=== PATIENT | male | born 1945 | race Caucasian/White ===

== ENCOUNTER 2017-10-11 11:55 | Emergency (ER) | payer MEDICARE, OTHER, SELFPAY ==
[2017-10-11 11:47] VITALS: BP 109/64; PULSE 80; RESP 18; TEMP 36.2; O2SAT 100
--- NOTE | 2017-10-11 11:55 | DI.RAD.S_ITS ---
PROCEDURE: XR CHEST 1V INDICATIONS: fall TECHNIQUE: One view of the chest was acquired. COMPARISON: [facility], CR, ABDOMEN ACUTE SERIES, 10/10/2015, 3:51. FINDINGS: Surgical changes and devices: None. Lungs and pleura: No pleural effusions or pneumothorax. Chronic interstitial changes are present with increased pulmonary vascularity. There is slight increased opacity in the left base/lingular. Mediastinum: Mediastinal contours appear normal. Heart size is normal. Bones and chest wall: No suspicious bony lesions. Overlying soft tissues appear unremarkable. IMPRESSION: Increased vascularity suggestive of edema with slight increased left basilar/lingular opacity. The latter could be manufacturer representative of edema vs developing air space disease. Dictated by: Stephany Rocha M.D. on 10/11/2017 at 12:19 Approved by: Stephany Rocha M.D. on 10/11/2017 at 12:22
--- NOTE | 2017-10-11 11:56 | DI.CT.S_ITS ---
PROCEDURE: CT HEAD/BRAIN WO CON INDICATIONS: fall head first 15 feet. Right sided forehead lac TECHNIQUE: Noncontrast 4.5 mm thick angled axial sections acquired from the foramen magnum to the vertex, with coronal and sagittal reformats. For radiation dose reduction, the following was used: automated exposure control, adjustment of mA and/or kV according to patient size. COMPARISON: None. FINDINGS: Image quality: Excellent. CSF spaces: Basal cisterns are patent. No extra-axial fluid collections. The ventricles are symmetric in size and shape. Brain: No intracranial bleeds or masses. There is cerebral volume loss for age, with resultant ventricular and sulcal prominence. There are periventricular and deep white matter chronic small vessel ischemic changes. There is intracranial internal carotid artery atherosclerosis. Skull and face: There is comminuted, mildly displaced right lateral orbital wall fracture. Possible nondisplaced right orbital fracture. Nondisplaced right zygomatic arch fracture is present. There are comminuted fractures of the anterior and posterior wall of the right maxillary sinus. Nondisplaced right nasal bone fracture is noted. There is right soft tissue laceration and contusion with subcutaneous emphysema. Sinuses: There is an air-fluid level in the right maxillary sinus, likely secondary to hematoma. Mastoids are clear. IMPRESSION: 1. No acute intracranial abnormalities. No intracranial bleed. 2. Cerebral volume loss and chronic microvascular ischemic changes. 3. Right orbital fractures. 4. Nondisplaced zygomatic arch fracture. 5. Comminuted fractures of the anterior and posterior right maxillary ricketts with hematoma within the maxillary sinus. 6. Right prefrontal soft tissue laceration/contusion. Dictated by: Jimmy Khan M.D. on 10/11/2017 at 12:22 Approved by: Jimmy Khan M.D. on 10/11/2017 at 12:32
--- NOTE | 2017-10-11 11:56 | DI.RAD.S_ITS ---
PROCEDURE: XR PELVIS 1-2V INDICATIONS: fall TECHNIQUE: 1 view(s) of the pelvis acquired. COMPARISON: [facility], CT, CT CHEST ABD PEL W CON, 10/11/2017, 11:52. FINDINGS: Bones: No fractures or dislocations. No suspicious bony lesions. Soft tissues: Visualized bowel gas pattern is normal. No suspicious soft tissue calcifications. IMPRESSION: No visualized acute fracture or dislocation. However, if clinical concern and/or pain persist, short interval imaging followup in 7-10 days is recommended, as occult injury cannot be definitively excluded. Dictated by: Stephany Rocha M.D. on 10/11/2017 at 12:23 Approved by: Stephany Rocha M.D. on 10/11/2017 at 12:24
--- NOTE | 2017-10-11 11:56 | DI.CT.S_ITS ---
PROCEDURE: CT CERVICAL SPINE WO CON INDICATIONS: fall 15 feet head first TECHNIQUE: Noncontrast 3 mm thick sections acquired from the skull base to the T4 level. Sagittal and coronal reformats were then constructed. For radiation dose reduction, the following was used: automated exposure control, adjustment of mA and/or kV according to patient size. COMPARISON: [facility], CT, CT HEAD/BRAIN WO CON, 10/11/2017, 11:52. [facility], CR, XR CHEST 1V, 10/11/2017, 11:45. FINDINGS: Image quality: Excellent. Bones: There is a nondisplaced fracture involving the right transverse process of C7. No dislocations. There is grade 1 anterolisthesis of C2 over C3. Moderate to severe degenerative disc disease is present at C3-C4, T4-T5, C5-C6 and C6-C7. There is uncovertebral arthritis and bilateral facet arthropathy scattered in cervical spine. Minimally displaced fractures are noted involving the posterior medial aspect of the right second, third, fourth, fifth and sixth ribs. There are right orbital wall and maxillary wall fractures, as well as fracture of the right zygomatic arch. Soft tissues: Prevertebral soft tissues are normal in thickness. No paravertebral hematomas. No apical pneumothoraces. There are carotid artery calcifications consistent with atherosclerosis. There is [id number] emphysema. IMPRESSION: 1. Nondisplaced fracture involving the right C7 transverse process. 2. Right orbital wall, maxillary wall and zygomatic arch fractures. Please see head CT for detail. 3. Multiple right rib fractures. Please see separate CT chest report. 4. Degenerative changes in cervical spine. 5. Moderate carotid artery atherosclerosis. 6. Emphysema. Dictated by: Jimmy Khan M.D. on 10/11/2017 at 12:32 Approved by: Jimmy Khan M.D. on 10/11/2017 at 12:46
--- NOTE | 2017-10-11 11:57 | DI.RAD.S_ITS ---
PROCEDURE: XR WRIST RT 2V INDICATIONS: fall pain TECHNIQUE: 2 views of the wrist were acquired. COMPARISON: None. FINDINGS: Bones: There is a comminuted transverse fracture identified involving the distal radius with a moderate dorsal angulation of the distal fracture fragment. No definite additional acute fractures are appreciated. There is widening of the scapholunate joint. Ulnar positive variance may be exaggerated by the distal radius fracture. There is moderate degenerative changes present involving the basal joints of the thumb. No suspicious osseous lesions are appreciated. Soft tissues: No suspicious soft tissue calcifications. Soft tissue swelling about the distal radius fracture is present. IMPRESSION: Comminuted intra-articular fracture of the distal radius with dorsal angulation. Dictated by: Chad Lance M.D. on 10/11/2017 at 11:23 Approved by: Chad Lance M.D. on 10/11/2017 at 11:26
--- NOTE | 2017-10-11 11:57 | DI.RAD.S_ITS ---
PROCEDURE: XR WRIST LT 2V INDICATIONS: fall pain TECHNIQUE: 2 views of the wrist were acquired. COMPARISON: None. FINDINGS: Bones: There is a mildly comminuted transverse fracture identified involving the distal radial metaphysis with probable intra-articular extension. Dorsal angulation of the distal fracture fragment appears to be present, but is not well evaluated related to suboptimal lateral positioning. A non-displaced ulnar styloid process fracture is evident. No additional fractures are seen. Moderate degenerative changes are noted involving the basal joint of the thumb. Soft tissues: No suspicious soft tissue calcifications. IMPRESSION: 1. Transverse distal left radius fracture with dorsal angulation and probable intra-articular extension. 2. Nondisplaced left ulnar styloid process fracture. Dictated by: Chad Lance M.D. on 10/11/2017 at 11:26 Approved by: Chad Lance M.D. on 10/11/2017 at 11:28
--- NOTE | 2017-10-11 11:57 | DI.CT.S_ITS ---
PROCEDURE: CT CHEST ABD PEL W CON INDICATIONS: Fall head first 15 feet. TECHNIQUE: After the administration of intravenous contrast, 5 mm thick sections acquired from the lung apices to the symphysis. 5 mm coronal and sagittal reformats were performed, with additional 7 mm MIP reformats through the lungs. For radiation dose reduction, the following was used: automated exposure control, adjustment of mA and/or kV according to patient size. COMPARISON: [facility], CT, CT CERVICAL SPINE WO CON, 10/11/2017, 11:52. FINDINGS: Image quality: Excellent. CHEST: Lungs and pleura: Tiny right pneumothorax is noted. Mild infiltrate in the right lower lobe may be secondary to mild pulmonary contusion. No acute airspace opacities. Mild emphysema. There is subpleural septal thickening and mild pulmonary fibrosis. No pleural effusions or pneumothorax. Central and peripheral airways appear patent and normal in caliber. Mediastinum: Heart size is normal. No pericardial effusion. No mediastinal hematoma. . Thoracic aorta and central pulmonary arteries are normal in size. Great vessels are normal in caliber. No mediastinal or hilar adenopathy by size criteriaEsophagus is normal in caliber. Small hiatal hernia. Chest wall: There are nondisplaced right second, third, fourth, fifth and sixth rib fractures posterior medially. Right acromioplasty. No axillary or supraclavicular adenopathy by size criteria. Thyroid gland is normal. ABDOMEN: Solid organs: Liver is normal in size and enhancement. There is a 1.4 x 2.0 cm indeterminate hypodensity in the infer marginal liver. Gallbladder is normal. Biliary system is non dilated. Pancreas enhances normally. Spleen is normal in size and enhancement. No adrenal nodules. Kidneys demonstrate normal size and enhancement, without hydronephrosis. There is a 4 cm simple cyst in the inferior pole of the right kidney. Peritoneum and bowel: Bowel loops demonstrate normal wall thickness and caliber. Multiple colonic diverticula are present. No evidence for acute diverticulitis. No free fluid or air. Nodes and vessels: No retroperitoneal or mesenteric adenopathy by size criteria. Aorta and inferior vena cava are normal in size. Miscellaneous: No ventral hernias. PELVIS: Genitourinary: Bladder wall thickness is normal. Miscellaneous: No inguinal hernias or adenopathy. Bones: There is a 9 mm sclerotic focus in the right ishium. No vertebral body compression fractures. IMPRESSION: 1. Tiny right pneumothorax. 2. Nondisplaced right second, third, fourth, fifth and sixth rib fractures. 3. Mild infiltrate in the right lower lobe may be secondary to mild pulmonary contusion. 4. Mild stranding posterior to the right kidney in the perinephric space could be secondary to mild contusion of the right kidney. No perinephric hematoma. A 4 cm simple appearing cyst in the inferior pole of the right kidney. 5. Diverticulosis without acute diverticulitis. 6. Mild emphysema. There is diffuse subpleural septal thickening and mild pulmonary fibrosis. 7. A 9 mm sclerotic focus in the right ishium. The result was discussed with Dr. Friend in ER prior to dictation. Dictated by: Jimmy Khan M.D. on 10/11/2017 at 12:47 Approved by: Jimmy Khan M.D. on 10/11/2017 at 13:03
[2017-10-11] MEDS: DIPHTH,PERTUSS(ACELL),TET VAC 0.5 ML SYRINGE IM (12:08)
[2017-10-11 12:10] VITALS: TEMP 36.4
[2017-10-11 12:13] LABS: Add Manual Diff / Slide Review NO; Eosinophils Percent Auto 3.2 % (2-4); Hematocrit 38.7 % (41-53); Hemoglobin 13.1 g/dL (13.5-17.5); Lymphocytes Percent Auto 46.3 % (25-40); Mean Corpuscular Hemoglobin 32.3 PG (26-34); Monocytes Percent Auto 9.8 % (3-14); Neutrophils Absolute Auto 3000 /uL (3000-5900); Neutrophils Percent Auto 39.7 % (50-75); Platelet Count 237 X10^3/uL (150-400); Red Blood Cell Count 4.07 X10^6/uL (4.5-5.9); White Blood Cell Count 7.5 X10^3/uL (4.5-11.0)
[2017-10-11 12:14] LABS: Prothrombin Time 11.1 SECONDS (10.1-12.7)
[2017-10-11 12:17] LABS: PTT Partial Thromboplastin Tim 21 SECONDS (26.4-36.2)
[2017-10-11 12:19] LABS: Alanine Aminotransferase 57 IU/L (21-72); Albumin 4.2 g/dL (3.5-5.0); Albumin Globulin Ratio 1.3 (1.0-2.8); Alkaline Phosphatase 51 U/L (38-126); Aspartate Aminotransferase 106 IU/L (17-59); BUN Creatinine Ratio 16.9 (6-22); Bilirubin Total 1.2 mg/dL (0.2-1.3); Blood Urea Nitrogen 22 mg/dL (9-20); Carbon Dioxide 21 mmol/L (22-32); Chloride 103 mmol/L (98-107); Estimated Glomerular Filt Rate 54.1 mL/min (>60); Globulin 3.2 g/dL (1.7-4.1); Glucose 152 mg/dL (80-110); HEMOLYSIS < 15 (0-50); Lipase 178 U/L (23-300); Potassium 3.5 mmol/L (3.4-5.1); Sodium 137 mmol/L (137-145); Total Protein 7.4 g/dL (6.3-8.2)
[2017-10-11 12:30] VITALS: BP 158/76; PULSE 80; RESP 18; O2SAT 100
[2017-10-11] MEDS: ONDANSETRON 4 MG/2 ML INJ IV (12:31)
[2017-10-11] MEDS: SODIUM CHLORIDE 0.9% 1,000 ML 150 ML IV (12:31)
[2017-10-11] MEDS: HYDROMORPHONE 1 MG INJ 0.5 MG IV ×2 (12:31→12:33)
[2017-10-11 12:54] VITALS: BP 158/76; PULSE 86; RESP 18; O2SAT 100
[2017-10-11 13:27] LABS: Ethanol (ETOH) < 10 mg/dL
[2017-10-11 13:30] VITALS: BP 182/94; PULSE 80; RESP 13; O2SAT 98
[2017-10-11] MEDS: diphenhydrAMINE 50 MG/ML VIAL 25 MG IV (13:43)
[2017-10-11] MEDS: HYDROMORPHONE 2 MG INJ 1 MG IV ×2 (13:43→14:38)
--- NOTE | 2017-10-11 13:46 | ED_ITS ---
HPI - Trauma General Chief Complaint: Trauma Stated Complaint: 10-15 ft fall Time Seen by Provider: 10/11/17 12:06 Source: patient and EMS Mode of arrival: EMS Limitations: no limitations History of Present Illness HPI narrative: Patient is a 72-year-old male who presents after off 15 ft fall. He was in his boat on the land and doing some work on it. He threw a mattress overboard he somehow fell after it and landed on the gravel. Landed mostly on the right side of his body questionable loss of consciousness complaining of bilateral wrist pain now. No blood thinners. MD complaint: fall Onset (ago): minute(s) Loss of Consciousness: unsure Location - Extremities: Bilateral: wrist Related Data Home Medications Medication Instructions Recorded Confirmed Reishi Mushroom Tea 1 cp PO DAILY 10/11/17 10/11/17 alprazolam 0.25 mg PO BEDTIME PRN 10/11/17 10/11/17 coenzyme Q10 [CoQ-10] 100 mg PO DAILY 10/11/17 10/11/17 milk thistle 1 cap PO DAILY 10/11/17 10/11/17 saw palmetto 1 cap PO DAILY 10/11/17 10/11/17 sildenafil [Viagra] 50 mg PO PRN PRN 10/11/17 10/11/17 vitamin B complex 1 tab PO DAILY 10/11/17 10/11/17 Allergies Allergy/AdvReac Type Severity Reaction Status Date / Time codeine [CODEINE] AdvReac Mild nausea Unverified 07/06/17 12:06 Review of Systems Constitutional Denies chills, Denies fever(s), Denies lethargy and Denies weakness Eyes Denies change in vision, Denies diplopia, Denies eye discharge, Denies loss of peripheral vision and Denies loss of vision ENT Ears, Nose, Mouth, and Throat: Denies change in voice, Denies vertigo and Denies sore throat Cardiovascular Denies chest pain, Denies irregular heart rhythm, Denies lightheadedness, Denies palpitations and Denies orthopnea Musculoskeletal Reports as per HPI and Denies numbness Integumentary/Breasts Comments: Laceration on forehead Neurologic Reports as per HPI, Reports confusion, Denies vertigo, Denies loss of vision, Denies numbness and Denies weakness Psychiatric Reports confusion Endocrine Denies palpitations PFSH Social History Smoking Status: Never smoker Exam Initial Vital Signs Initial Vital Signs: Vital Signs Temperature 97.2 F L 10/11/17 11:47 Pulse Rate 80 10/11/17 11:47 Respiratory Rate 18 10/11/17 11:47 Blood Pressure 109/64 10/11/17 11:47 Pulse Oximetry 100 10/11/17 11:47 GENERAL: Alert and oriented x3 HEENT: Head contusion and abrasion noted on the right side of face, EOMI, pupils reactive, contusion forming over right eyelid initially able to open, no septal hematoma NECK: C-collar in place no tenderness no step-offs appreciated CARDIOVASCULAR: Regular rate and rhythm without murmurs, rubs or gallops. RESPIRATORY: Breath sounds equal bilaterally, no wheezes rales or rhonchi. No crepitations, no subcutaneous air, chest is tender right side, no signs of trauma, no paradoxical movement ABDOMEN: Soft, nontender. Normoactive bowel sounds all 4 quadrants. No guarding or rebound. BACK: Nontender vertebrae, no step-offs, no contusions PELVIS: stable. EXTREMITIES: Normal range of motion, no clubbing or edema. Right upper extremity: Right shoulder abrasion, right wrist deformity peripheral pulse intact able to move finger Left upper extremity: Wrist deformity, pulse intact neurovascularly intact Right lower extremity: Within normal limits Left lower extremity:Within normal limits NEUROLOGICAL: Cranial nerves II through XII grossly intact. SKIN: Laceration right forehead 2 cm. Abrasion right shoulder Procedures Laceration Repair Laceration 1: Site: face (forehead) Side (If applicable): right Size (cm): 2 Description: linear Depth: simple, single layer Local Anesthetic: lidocaine 1% Amount of anesthesia used (mL): 2 Pre-repair: wound explored, irrigated extensively and deep structures intact Skin layer closed with: nylon Size (cm): 4-0 Number of sutures: 3 Orthopedic Splinting/Casting Injury #1: Side: left Upper Extremity Injury Location: wrist Upper Extremity Immobilizer: sugar tong splint Additional Comments: Applied by nurse verified by me neurovascularly intact afterwards Injury #2: Side: right Upper Extremity Injury Location: wrist Upper Extremity Immobilizer: sugar tong splint Additional Comments: Applied by nurse verified by me neurovascularly intact afterwards Course Orders Ordered: ED Orders 10/11/17 11:55 XR chest 1V Stat Complete Blood Count AUTO DIFF Stat Comprehensive Metabolic Panel Stat Lipase Stat Partial Thromboplastin Time Stat Prothrombin Time INR Stat Type and Screen Stat 10/11/17 11:56 CT cervical spine wo con Stat CT head/brain wo con Stat XR pelvis 1-2V Stat 10/11/17 11:57 CT chest abd pel w con Stat XR wrist LT 2V Stat XR wrist RT 2V Stat 10/11/17 12:59 Ethanol (ETOH) Stat 10/11/17 14:20 Urine Microscopic Stat Discontinued Medications Diphenhydramine HCl (Benadryl) 25 mg IV NOW ONE Stop: 10/11/17 13:21 Last Admin: 10/11/17 13:43 Dose: 25 mg Hydromorphone HCl (Dilaudid) 0.5 mg IV NOW ONE Stop: 10/11/17 11:54 Last Admin: 10/11/17 12:31 Dose: 0.5 mg Hydromorphone HCl (Dilaudid) 0.5 mg IV NOW ONE Stop: 10/11/17 12:33 Last Admin: 10/11/17 12:33 Dose: 0.5 mg Hydromorphone HCl (Dilaudid) 1 mg IV NOW ONE Stop: 10/11/17 12:56 Last Admin: 10/11/17 13:43 Dose: 1 mg Hydromorphone HCl (Dilaudid) 1 mg IV NOW ONE Stop: 10/11/17 14:29 Last Admin: 10/11/17 14:38 Dose: 1 mg Sodium Chloride (Normal Saline 0.9%) 1,000 mls @ 150 mls/hr IV CONT ALEXANDER Last Admin: 10/11/17 12:31 Dose: 150 mls/hr Ondansetron HCl (Zofran) 4 mg IV NOW ONE Stop: 10/11/17 12:21 Last Admin: 10/11/17 12:31 Dose: 4 mg Vital Signs - 8 hr 10/11/17 11:47 10/11/17 12:10 10/11/17 12:30 Temperature 97.2 F L 97.5 F L Pulse Rate 80 80 Respiratory Rate 18 18 Blood Pressure 109/64 Blood Pressure [Right Arm] 158/76 H Pulse Oximetry 100 100 10/11/17 12:54 10/11/17 13:30 10/11/17 14:39 Temperature 97.8 F Pulse Rate 86 80 85 Respiratory Rate 18 13 18 Blood Pressure Blood Pressure [Right Arm] 158/76 H 182/94 H 190/99 H Pulse Oximetry 100 98 100 MDM - Trauma Lab Data Attestation: I reviewed the patient's lab results. Result diagrams: 10/11/17 11:55 10/11/17 11:55 Lab Results 10/11/17 10/11/17 10/11/17 Range/Units 11:55 11:55 11:55 WBC 7.5 (4.5-11.0) X10^3/uL RBC 4.07 L (4.5-5.9) X10^6/uL Hgb 13.1 L (13.5-17.5) g/dL Hct 38.7 L (41-53) % MCV 95.0 (80-100) fL MCH 32.3 (26-34) PG MCHC 34.0 (30-36) % RDW 14.0 (11.6-14.8) % Plt Count 237 (150-400) X10^3/uL Neut % (Auto) 39.7 L (50-75) % Lymph % (Auto) 46.3 H (25-40) % [place] % (Auto) 9.8 (3-14) % Eos % (Auto) 3.2 (2-4) % Baso % (Auto) 1.0 (0-2) % Neut # (Auto) 3000 (3771-3759) /uL PT 11.1 (10.1-12.7) SECONDS INR 1.0 (0.9-1.3) APTT 21 L (26.4-36.2) SECONDS Sodium 137 (137-145) mmol/L Potassium 3.5 (3.4-5.1) mmol/L Chloride 103 (98-107) mmol/L Carbon Dioxide 21 L (22-32) mmol/L BUN 22 H (9-20) mg/dL Creatinine 1.30 H (0.66-1.25) mg/dL Estimated GFR 54.1 L (>60) mL/min BUN/Creatinine Ratio 16.9 (6-22) Glucose 152 H (80-110) mg/dL Calcium 9.0 (8.4-10.2) mg/dL Total Bilirubin 1.2 (0.2-1.3) mg/dL AST 106 H (17-59) IU/L ALT 57 (21-72) IU/L Alkaline Phosphatase 51 (38-126) U/L Total Protein 7.4 (6.3-8.2) g/dL Albumin 4.2 (3.5-5.0) g/dL Globulin 3.2 (1.7-4.1) g/dL Albumin/Globulin Ratio 1.3 (1.0-2.8) Lipase 178 (23-300) U/L Urine RBC (0-5/HPF) Urine WBC (0-5/HPF) Urine Bacteria (None) Ur Culture Indicated? Micro UA Comment Ethyl Alcohol mg/dL Blood Type Antibody Screen 10/11/17 10/11/17 10/11/17 Range/Units 11:55 12:59 14:20 WBC (4.5-11.0) X10^3/uL RBC (4.5-5.9) X10^6/uL Hgb (13.5-17.5) g/dL Hct (41-53) % MCV (80-100) fL MCH (26-34) PG MCHC (30-36) % RDW (11.6-14.8) % Plt Count (150-400) X10^3/uL Neut % (Auto) (50-75) % Lymph % (Auto) (25-40) % [place] % (Auto) (3-14) % Eos % (Auto) (2-4) % Baso % (Auto) (0-2) % Neut # (Auto) (5754-0545) /uL PT (10.1-12.7) SECONDS INR (0.9-1.3) APTT (26.4-36.2) SECONDS Sodium (137-145) mmol/L Potassium (3.4-5.1) mmol/L Chloride (98-107) mmol/L Carbon Dioxide (22-32) mmol/L BUN (9-20) mg/dL Creatinine (0.66-1.25) mg/dL Estimated GFR (>60) mL/min BUN/Creatinine Ratio (6-22) Glucose (80-110) mg/dL Calcium (8.4-10.2) mg/dL Total Bilirubin (0.2-1.3) mg/dL AST (17-59) IU/L ALT (21-72) IU/L Alkaline Phosphatase (38-126) U/L Total Protein (6.3-8.2) g/dL Albumin (3.5-5.0) g/dL Globulin (1.7-4.1) g/dL Albumin/Globulin Ratio (1.0-2.8) Lipase (23-300) U/L Urine RBC 10-30/hpf H (0-5/HPF) Urine WBC None seen (0-5/HPF) Urine Bacteria None seen (None) Ur Culture Indicated? Cult not indicated Micro UA Comment Not Reportable Ethyl Alcohol < 10 mg/dL Blood Type A Positive Antibody Screen Negative Imaging Data CT scan - head: Radiologist's impression: PROCEDURE: CT HEAD/BRAIN WO CON INDICATIONS: fall head first 15 feet. Right sided forehead lac TECHNIQUE: Noncontrast 4.5 mm thick angled axial sections acquired from the foramen magnum to the vertex, with coronal and sagittal reformats. For radiation dose reduction, the following was used: automated exposure control, adjustment of mA and/or kV according to patient size. COMPARISON: None. FINDINGS: Image quality: Excellent. CSF spaces: Basal cisterns are patent. No extra-axial fluid collections. The ventricles are symmetric in size and shape. Brain: No intracranial bleeds or masses. There is cerebral volume loss for age , with resultant ventricular and sulcal prominence. There are periventricular and deep white matter chronic small vessel ischemic changes. There is intracranial internal carotid artery atherosclerosis. Skull and face: There is comminuted, mildly displaced right lateral orbital wall fracture. Possible nondisplaced right orbital fracture. Nondisplaced right zygomatic arch fracture is present. There are comminuted fractures of the anterior and posterior wall of the right maxillary sinus. Nondisplaced right nasal bone fracture is noted. There is right soft tissue laceration and contusion with subcutaneous emphysema. Sinuses: There is an air-fluid level in the right maxillary sinus, likely secondary to hematoma. Mastoids are clear. IMPRESSION: 1. No acute intracranial abnormalities. No intracranial bleed. 2. Cerebral volume loss and chronic microvascular ischemic changes. 3. Right orbital fractures. 4. Nondisplaced zygomatic arch fracture. 5. Comminuted fractures of the anterior and posterior right maxillary ricketts with hematoma within the maxillary sinus. 6. Right prefrontal soft tissue laceration/contusion. Dictated by: Jimmy Khan M.D. on 10/11/2017 at 12:22 ct neck: Radiologist's impression: PROCEDURE: CT CERVICAL SPINE WO CON INDICATIONS: fall 15 feet head first TECHNIQUE: Noncontrast 3 mm thick sections acquired from the skull base to the T4 level. Sagittal and coronal reformats were then constructed. For radiation dose reduction, the following was used: automated exposure control, adjustment of mA and/or kV according to patient size. COMPARISON: [facility], CT, CT HEAD/BRAIN WO CON, 10/11/2017, 11:52. [facility], CR, XR CHEST 1V, 10/11/2017, 11:45. FINDINGS: Image quality: Excellent. Bones: There is a nondisplaced fracture involving the right transverse process of C7. No dislocations. There is grade 1 anterolisthesis of C2 over C3. Moderate to severe degenerative disc disease is present at C3-C4, T4-T5, C5-C6 and C6-C7. There is uncovertebral arthritis and bilateral facet arthropathy scattered in cervical spine. Minimally displaced fractures are noted involving the posterior medial aspect of the right second, third, fourth, fifth and sixth ribs. There are right orbital wall and maxillary wall fractures, as well as fracture of the right zygomatic arch. Soft tissues: Prevertebral soft tissues are normal in thickness. No paravertebral hematomas. No apical pneumothoraces. There are carotid artery calcifications consistent with atherosclerosis. There is [id number] emphysema. IMPRESSION: 1. Nondisplaced fracture involving the right C7 transverse process. 2. Right orbital wall, maxillary wall and zygomatic arch fractures. Please see head CT for detail. 3. Multiple right rib fractures. Please see separate CT chest report. 4. Degenerative changes in cervical spine. 5. Moderate carotid artery atherosclerosis. 6. Emphysema. Dictated by: Jimmy Khan M.D. on 10/11/2017 at 12:32 Chest x-ray: Radiologist's impression: PROCEDURE: XR CHEST 1V INDICATIONS: fall TECHNIQUE: One view of the chest was acquired. COMPARISON: [facility], CR, ABDOMEN ACUTE SERIES, 10/10/2015, 3:51. FINDINGS: Surgical changes and devices: None. Lungs and pleura: No pleural effusions or pneumothorax. Chronic interstitial changes are present with increased pulmonary vascularity. There is slight increased opacity in the left base/lingular. Mediastinum: Mediastinal contours appear normal. Heart size is normal. Bones and chest wall: No suspicious bony lesions. Overlying soft tissues appear unremarkable. IMPRESSION: Increased vascularity suggestive of edema with slight increased left basilar/lingular opacity. The latter could be patient admitting representative of edema vs developing air space disease. ct chest ab pelvis: Radiologist's impression: PROCEDURE: CT CHEST ABD PEL W CON INDICATIONS: Fall head first 15 feet. TECHNIQUE: After the administration of intravenous contrast, 5 mm thick sections acquired from the lung apices to the symphysis. 5 mm coronal and sagittal reformats were performed, with additional 7 mm MIP reformats through the lungs. For radiation dose reduction, the following was used: automated exposure control, adjustment of mA and/or kV according to patient size. COMPARISON: [facility], CT, CT CERVICAL SPINE WO CON, 10/11/2017, 11:52. FINDINGS: Image quality: Excellent. CHEST: Lungs and pleura: Tiny right pneumothorax is noted. Mild infiltrate in the right lower lobe may be secondary to mild pulmonary contusion. No acute airspace opacities. Mild emphysema. There is subpleural septal thickening and mild pulmonary fibrosis. No pleural effusions or pneumothorax. Central and peripheral airways appear patent and normal in caliber. Mediastinum: Heart size is normal. No pericardial effusion. No mediastinal hematoma. . Thoracic aorta and central pulmonary arteries are normal in size. Great vessels are normal in caliber. No mediastinal or hilar adenopathy by size criteriaEsophagus is normal in caliber. Small hiatal hernia. Chest wall: There are nondisplaced right second, third, fourth, fifth and sixth rib fractures posterior medially. Right acromioplasty. No axillary or supraclavicular adenopathy by size criteria. Thyroid gland is normal. ABDOMEN: Solid organs: Liver is normal in size and enhancement. There is a 1.4 x 2.0 cm indeterminate hypodensity in the infer marginal liver. Gallbladder is normal. Biliary system is non dilated. Pancreas enhances normally. Spleen is normal in size and enhancement. No adrenal nodules. Kidneys demonstrate normal size and enhancement, without hydronephrosis. There is a 4 cm simple cyst in the inferior pole of the right kidney. Peritoneum and bowel: Bowel loops demonstrate normal wall thickness and caliber. Multiple colonic diverticula are present. No evidence for acute diverticulitis. No free fluid or air. Nodes and vessels: No retroperitoneal or mesenteric adenopathy by size criteria. Aorta and inferior vena cava are normal in size. Miscellaneous: No ventral hernias. PELVIS: Genitourinary: Bladder wall thickness is normal. Miscellaneous: No inguinal hernias or adenopathy. Bones: There is a 9 mm sclerotic focus in the right ishium. No vertebral body compression fractures. IMPRESSION: 1. Tiny right pneumothorax. 2. Nondisplaced right second, third, fourth, fifth and sixth rib fractures. 3. Mild infiltrate in the right lower lobe may be secondary to mild pulmonary contusion. 4. Mild stranding posterior to the right kidney in the perinephric space could be secondary to mild contusion of the right kidney. No perinephric hematoma. A 4 cm simple appearing cyst in the inferior pole of the right kidney. 5. Diverticulosis without acute diverticulitis. 6. Mild emphysema. There is diffuse subpleural septal thickening and mild pulmonary fibrosis. 7. A 9 mm sclerotic focus in the right ishium. The result was discussed with Dr. Friend in ER prior to dictation. Dictated by: Jimmy Khan M.D. on 10/11/2017 at 12:47 xr left wrist: Attestation: I personally reviewed and interpreted this imaging study as follows: Radiologist's impression: PROCEDURE: XR WRIST LT 2V INDICATIONS: fall pain TECHNIQUE: 2 views of the wrist were acquired. COMPARISON: None. FINDINGS: Bones: There is a mildly comminuted transverse fracture identified involving the distal radial metaphysis with probable intra-articular extension. Dorsal angulation of the distal fracture fragment appears to be present, but is not well evaluated related to suboptimal lateral positioning. A non-displaced ulnar styloid process fracture is evident. No additional fractures are seen. Moderate degenerative changes are noted involving the basal joint of the thumb. Soft tissues: No suspicious soft tissue calcifications. IMPRESSION: 1. Transverse distal left radius fracture with dorsal angulation and probable intra-articular extension. 2. Nondisplaced left ulnar styloid process fracture. Dictated by: Chad Lance M.D. on 10/11/2017 at 11:26 xr right wrist: Radiologist's impression: PROCEDURE: XR WRIST RT 2V INDICATIONS: fall pain TECHNIQUE: 2 views of the wrist were acquired. COMPARISON: None. FINDINGS: Bones: There is a comminuted transverse fracture identified involving the distal radius with a moderate dorsal angulation of the distal fracture fragment. No definite additional acute fractures are appreciated. There is widening of the scapholunate joint. Ulnar positive variance may be exaggerated by the distal radius fracture. There is moderate degenerative changes present involving the basal joints of the thumb. No suspicious osseous lesions are appreciated. Soft tissues: No suspicious soft tissue calcifications. Soft tissue swelling about the distal radius fracture is present. IMPRESSION: Comminuted intra-articular fracture of the distal radius with dorsal angulation. Dictated by: Chad Lance M.D. on 10/11/2017 at 11:23 MDM Narrative Medical decision making narrative: The patient remains stable. C-collar is switched to an [place] collar I spoken with on-call surgery, Dr. Horton, due to multiple facial fractures he will need to go to a higher level of care , the ER doctor at [place] has been updated patient's symptoms test results happily accepts patient for transfer. Critical Care Time Critical Care Time: Yes Total Critical Care Time: 45 Attestation: The patient satisfied the definition of criticality in that they had a high probability of imminent deterioration of their conditon. Critical care time includes time spent at the bedside, plus where appropriate: gathering information from family, EMS, old records, caregivers; interpretation of test results; and time spent discussing patient with other physicians Discharge Plan Departure Patient Disposition: [facility] Clinical Impression: Facial bones, closed fracture, Multiple rib fractures, C7 cervical fracture, Fracture of right wrist, Fracture of left wrist, Orbital fracture Discharge Date/Time: 10/11/17 15:06 Interventions: ED Discharge Assessment Last Done: 10/11/17 14:45 Prescriptions: No Action sildenafil [Viagra] 100 mg Tablet 50 mg PO PRN PRN (Reason: Sexual Activity) RF: 0 alprazolam 0.5 mg Tablet 0.25 mg PO BEDTIME PRN (Reason: Anxiety) RF: 0 coenzyme Q10 [CoQ-10] 100 mg Capsule 100 mg PO DAILY RF: 0 Reishi Mushroom Tea 1 cp PO DAILY RF: 0 milk thistle 1,000 mg capsule 1 cap PO DAILY RF: 0 saw palmetto 80 mg capsule 1 cap PO DAILY RF: 0 vitamin B complex Tablet 1 tab PO DAILY RF: 0
[2017-10-11 14:39] VITALS: BP 190/99; PULSE 85; RESP 18; TEMP 36.6; O2SAT 100
[2017-10-11 15:03] LABS: Bacteria Urine None Seen; Culture Indicated Urine Cult Not Indicated; RBC Urine 10-30/HPF (0-5/HPF); WBC Urine None Seen (0-5/HPF)
== END 2017-10-11 15:06 | disposition short-term general hospital (02) ==
PROVIDERS: Emergency Provider Emergency Medicine; PCP Family Medicine
DX: S02.92XA Unspecified fracture of facial bones, initial encounter for closed fracture (principal); S22.39XA Fracture of one rib, unspecified side, initial encounter for closed fracture; S12.600A Unspecified displaced fracture of seventh cervical vertebra, initial encounter for closed fracture; S62.101A Fracture of unspecified carpal bone, right wrist, initial encounter for closed fracture; S62.102A Fracture of unspecified carpal bone, left wrist, initial encounter for closed fracture; Y30.XXXA Falling, jumping or pushed from a high place, undetermined intent, initial encounter
CPT/HCPCS: 29125; 36591; 70450; 71045; 71260; 72125; 72170; 73100; 74177; 80053; 80320; 81015; 82962; 83690; 85025; 85610; 85730; 86850; 86900; 86901; 90471; 90715; 96361; 96374; 96375; 96376; 99283; 99285; J1170; J1200; J2405; Q9967

== ENCOUNTER → 2018-08-15 10:08 | Outpatient (CLI) | payer MEDICARE, OTHER, SELFPAY ==
[2018-08-15 11:44] LABS: Add Manual Diff / Slide Review NO; Basophils Absolute Auto 100 /uL (0-100); Basophils Percent Auto 1.1 % (0-2); Eosinophils Absolute Auto 400 /uL (0-450); Eosinophils Percent Auto 6.3 % (2-4); Hematocrit 38.9 % (41-53); Hemoglobin 13.2 g/dL (13.5-17.5); Lymphocytes Absolute Auto 1600 /uL (1100-4500); Lymphocytes Percent Auto 27.9 % (25-40); Mean Corpuscular HGB Conc 33.9 % (30-36); Mean Corpuscular Hemoglobin 31.7 PG (26-34); Mean Corpuscular Volume 93.6 fL (80-100); Monocytes Absolute Auto 1000 /uL (0-900); Monocytes Percent Auto 16.6 % (3-14); Neutrophils Absolute Auto 2800 /uL (1500-7000); Neutrophils Percent Auto 48.1 % (50-75); Platelet Count 216 X10^3/uL (150-400); Red Blood Cell Count 4.15 X10^6/uL (4.5-5.9); Red Cell Distribution Width 14.4 % (11.6-14.8); White Blood Cell Count 5.8 X10^3/uL (4.5-11.0)
[2018-08-15 12:16] LABS: Alanine Aminotransferase 18 IU/L (21-72); Albumin 4.3 g/dL (3.5-5.0); Albumin Globulin Ratio 1.3 (1.0-2.8); Alkaline Phosphatase 47 U/L (38-126); Aspartate Aminotransferase 34 IU/L (17-59); BUN Creatinine Ratio 17.1 (6-22); Bilirubin Total 0.4 mg/dL (0.2-1.3); Blood Urea Nitrogen 24 mg/dL (9-20); Calcium 9.3 mg/dL (8.4-10.2); Carbon Dioxide 26 mmol/L (22-32); Chloride 104 mmol/L (98-107); Cholesterol 188 mg/dL (140-199); Estimated Glomerular Filt Rate 49.7 mL/min (>60); Globulin 3.4 g/dL (1.7-4.1); Glucose 75 mg/dL (80-110); HDL Cholesterol 56 mg/dL (40-60); HEMOLYSIS < 15 (0-50); LDL Cholesterol Calculated 122 mg/dL (<100); Potassium 4.6 mmol/L (3.4-5.1); Sodium 139 mmol/L (137-145); Total Protein 7.7 g/dL (6.3-8.2); Triglycerides 50 mg/dL (35-150)
== END ==
PROVIDERS: PCP Family Medicine; Visit Provider Family Medicine
DX: E78.5 Hyperlipidemia, unspecified (principal); R00.1 Bradycardia, unspecified; N40.1 Benign prostatic hyperplasia with lower urinary tract symptoms; Z00.00 Encounter for general adult medical examination without abnormal findings
CPT/HCPCS: 36415; 80053; 80061; 84153; 84443; 85025; G0103

== ENCOUNTER → 2018-12-15 09:12 | Outpatient (CLI) | payer MEDICARE, OTHER, SELFPAY | PROVIDERS: Visit Provider Physician Assistant | DX: M25.562 Pain in left knee (principal) ==

== ENCOUNTER 2022-01-20 14:20 | Inpatient (IN) | payer MEDICARE, OTHER, SELFPAY ==
[2022-01-20] VITALS (22 sets, daily range): BP systolic 132–186; BP diastolic 59–90; PULSE 65–89; RESP 13–40; TEMP 35.9–36.9; O2SAT 92–100; BMI 21.0
--- NOTE | 2022-01-20 | DI.RAD.S_ITS ---
PROCEDURE: XR CHEST 1V INDICATIONS: CHEST TUBE PLACEMENT TECHNIQUE: One view of the chest was acquired. COMPARISON: [facility], CR, XR CHEST 1V, 01/20/2022, 15:36. FINDINGS: Surgical changes and devices: Left-sided chest tube. Lungs and pleura: Decreased trace left pneumothorax. No pleural effusions. Moderate left basilar airspace opacity. Mediastinum: Mediastinal contours appear normal. Heart size is normal. Bones and chest wall: Multiple left rib fractures. Left scapular fracture. Overlying soft tissues appear unremarkable. IMPRESSION: 1. Near complete resolution of left pneumothorax following chest tube placement. 2. Multiple left rib fractures and left scapular fracture. 3. Left basilar pneumonia versus aspiration versus lung injury. Dictated by: Roseann Dillon M.D. on 01/20/2022 at 16:50 Transcribed by: ANETTE on 01/20/2022 at 16:51 Approved by: Roseann Dillon M.D. on 01/20/2022 at 17:01
--- NOTE | 2022-01-20 14:40 | DI.RAD.S_ITS ---
PROCEDURE: XR SHOULDER LT MIN 2V INDICATIONS: R/o fx TECHNIQUE: 3 views of the shoulder were acquired. COMPARISON: [facility], CT, CT UE LT WO CON, 01/20/2022, 14:56. FINDINGS: Bones: There is a moderately displaced fracture of the posterior inferior glenoid. There is a moderately displaced comminuted fracture of the middle and inner thirds of the scapula. Multiple left rib fractures are present. Soft tissues: No suspicious soft tissue calcifications. Left pneumothorax is present, as documented by recent CT examination. IMPRESSION: 1. Left scapular and rib fractures. 2. Left pneumothorax. Dictated by: Roseann Dillon M.D. on 01/20/2022 at 15:14 Transcribed by: ANETTE on 01/20/2022 at 15:18 Approved by: Roseann Dillon M.D. on 01/20/2022 at 15:49
[2022-01-20] MEDS: KETOROLAC 30 MG/ML VIAL 15 MG IM (14:46)
[2022-01-20] MEDS: HYDROMORPHONE 1 MG INJ IM (14:46)
--- NOTE | 2022-01-20 14:53 | DI.CT.S_ITS ---
PROCEDURE: CT UE LT WO CON INDICATIONS: trauma TECHNIQUE: Noncontrast 1-1.5 mm thick sections acquired from the acromioclavicular joint to the inferior scapula, with coronal and sagittal reformatting. COMPARISON: [facility], CR, XR SHOULDER LT MIN 2V, 01/20/2022, 14:44. FINDINGS: Image quality: Excellent. Bones: Remarkably comminuted displaced scapular fracture with innumerable fragments present. Markedly comminuted posterior lateral 2nd rib fracture nondisplaced lateral left 3rd rib fracture. Comminuted lateral 4th rib fracture. Nondisplaced lateral 5th rib fracture. Soft tissues: Large left pneumothorax. Underlying interstitial pulmonary fibrosis and pleural thickening. IMPRESSION: 1. There is a remarkably comminuted displaced scapular fracture. The scapular wing is markedly disrupted. 2. There are numerous left rib fractures, involving the 2nd through 6th ribs. 3. Large left pneumothorax. 4. Pulmonary interstitial fibrosis and pleural thickening. Dictated by: Yan Avila M.D. on 01/20/2022 at 15:41 Approved by: Yan Avila M.D. on 01/20/2022 at 15:46
[2022-01-20] MEDS: methocarbamoL 500 MG TABLET PO (15:18)
--- NOTE | 2022-01-20 15:36 | DI.RAD.S_ITS ---
PROCEDURE: XR CHEST 1V INDICATIONS: pneumothorax, trauma TECHNIQUE: One view of the chest was acquired. COMPARISON: [facility], CT, CT UE LT WO CON, 01/20/2022, 14:56. [facility], CR, XR CHEST 1V, 10/11/2017, 11:45. FINDINGS: Surgical changes and devices: None Lungs and pleura: Large left pneumothorax. Left apical lung mass measuring approximately 4.7 cm. Bilateral pulmonary interstitial fibrosis. No pleural effusions or pneumothorax. Mediastinum: Mediastinal contours appear normal. Heart size is normal. Bones and chest wall: Markedly comminuted scapular fracture. Multiple left rib fractures. IMPRESSION: 1. Large left apical lung mass. 2. Large left pneumothorax. 3. Pulmonary interstitial fibrosis. 4. Extensively comminuted scapular fracture and multiple left rib fractures. Comment: Findings were discussed with Haley Chacko on 01/20/2022 at 1643 hours Dictated by: Yan Avila M.D. on 01/20/2022 at 16:40 Approved by: Yan Avila M.D. on 01/20/2022 at 16:44
[2022-01-20] MEDS: SODIUM CHLORIDE 0.9% 1,000 ML 1000 ML IV (16:00)
--- NOTE | 2022-01-20 16:03 | PC.NURSE ---
Addendum entered by Yaa Gongora R.N. 01/20/22 17:36: 1610: chest tube inserted and pt tolerated well. Pleuravac system to gravity. Inquired to physician regarding orders for chest tube suction. No new orders given. Original Note: pt being set up for chest tube insertion
[2022-01-20] MEDS: propofoL 200 MG/20 ML VIAL 75 MG IV (16:05)
[2022-01-20] MEDS: fentaNYL 100 MCG/2 ML INJ (16:10)
--- NOTE | 2022-01-20 16:19 | DI.CT.S_ITS ---
PROCEDURE: CT HEAD/BRAIN WO CON INDICATIONS: fall TECHNIQUE: Noncontrast 4.5 mm thick angled axial sections acquired from the foramen magnum to the vertex, with coronal and sagittal reformats. For radiation dose reduction, the following was used: automated exposure control, adjustment of mA and/or kV according to patient size. COMPARISON: [facility], CT, CT HEAD/BRAIN WO CON, 10/11/2017, 11:52. FINDINGS: Image quality: Excellent. CSF spaces: Basal cisterns are patent. No extra-axial fluid collections. The ventricles are symmetric in size and shape. Brain: No intracranial bleeds or masses. There is cerebral volume loss for age, with resultant ventricular and sulcal prominence. There are periventricular and deep white matter chronic small vessel ischemic changes. There is intracranial internal carotid artery atherosclerosis. Skull and face: Calvarium and visualized facial bones appear intact, without suspicious lesions. Sinuses: Visualized sinuses and mastoids are clear. IMPRESSION: 1. No acute intracranial findings. Dictated by: Lanie Hall M.D. on 01/20/2022 at 17:05 Approved by: Lanie Hall M.D. on 01/20/2022 at 17:06
--- NOTE | 2022-01-20 16:19 | DI.CT.S_ITS ---
PROCEDURE: CT CERVICAL SPINE WO CON INDICATIONS: fall TECHNIQUE: Noncontrast 3 mm thick sections acquired from the skull base to the T4 level. Sagittal and coronal reformats were then constructed. For radiation dose reduction, the following was used: automated exposure control, adjustment of mA and/or kV according to patient size. COMPARISON: [facility], CT, CT CERVICAL SPINE WO CON, 10/11/2017, 11:52. FINDINGS: Image quality: Excellent. Bones: Grade 1 C2 on C3 anterolisthesis is redemonstrated and is slightly increased in extent when compared with the CT dated October 11, 2017. There is trace retrolisthesis, as before at C4-5, C5-6, and C6-7. Severe degenerative changes are redemonstrated. No acute compression deformities. There is a comminuted displaced fracture of both the posterior and anterior aspect of the 2nd and 3rd ribs. Comminuted fractures are also visualized within the posterior aspect of the 4th rib, 5th rib, and 6th rib. The anterior aspects of these ribs are not visualized and fractures cannot be excluded. There is a comminuted, displaced fracture of the left scapular body where visualized. Soft tissues: There is a small left apical pneumothorax which is incompletely characterized on this limited view of the chest.. IMPRESSION: 1. No acute cervical spine injury. 2. Severe degenerative change of the cervical spine with increased anterolisthesis at C2-3 when compared with the study from 2018. Although this may be a chronic degenerative change, ligamentous laxity could also be considered in the differential. 3. Multiple comminuted left rib fractures. Anterior and posterior fractures at the 2nd and 3rd left ribs raise the suspicion for flail chest. 4. Partially characterized left apical pneumothorax. 5. Comminuted, displaced left scapular body fracture. Dictated by: Lanie Hall M.D. on 01/20/2022 at 17:00 Approved by: Lanie Hall M.D. on 01/20/2022 at 17:05
--- NOTE | 2022-01-20 16:19 | DI.CT.S_ITS ---
PROCEDURE: CT CHEST ABD PEL W CON INDICATIONS: fall pneumo scapula fx TECHNIQUE: After the administration of intravenous contrast, 5 mm thick sections acquired from the lung apices to the symphysis. 2.5 mm thick coronal and sagittal reformats were acquired. Additional 7 mm thick coronal maximum intensity projection (MIP) reformats acquired through the lungs. Optional 10-minute delayed imaging may be performed from the kidneys to the bladder. For radiation dose reduction, the following was used: automated exposure control, adjustment of mA and/or kV according to patient size. COMPARISON: [facility], CT, CT CHEST ABD PEL W CON, 10/11/2017, 11:52. FINDINGS: Image quality: Excellent. CHEST: Lungs: There is a small apical and anteriorly layering left pneumothorax. A chest tube is in place anteriorly. The left lung volume is low and there are peripheral reticulations, and honeycombing throughout the lungs, left lung base most extensive. Posteriorly in the left lung apex, there is pleural thickening and pleural base consolidations suggesting pulmonary contusion. There is no pleural effusion or hemothorax. The airways are patent. Mediastinum: No mediastinal hematomas. Heart size is normal. No pericardial effusion. Thoracic aorta and pulmonary arteries demonstrate normal size and enhancement. No mediastinal or hilar adenopathy. Esophagus is normal in caliber. No hiatal hernia. Chest wall: There left displaced and impacted rib fractures posteriorly, 2nd, 3rd, 4th, 5th. Fifth rib fragments are overlapping by 1.7 cm. Second rib also demonstrates minimally displaced fracture anteriorly. 3rd 4th and 5th ribs are also fractured laterally. There is a comminuted left scapular fracture involving the posterior inferior aspect of the glenoid fossa. The glenohumeral joint remains normally located. The clavicle appears intact. No visible vertebral body fractures. There is intramuscular and subcutaneous emphysema through the left pectoralis muscle adjacent to the chest tube. There is swelling of the left subscapularis and latissimus muscles. No acute hematoma. ABDOMEN: Solid organs: The liver is normal size. There is a probable hemangioma in the lateral inferior right lobe liver tip as it was present in 2018. No liver lacerations. The spleen, pancreas, and kidneys are intact without laceration or hematoma. There is an exophytic cyst arising from the lower pole of the right kidney, chronic. Adrenal glands demonstrate appropriate attenuation. Peritoneum and bowel: No free fluid or air. Unenhanced bowel loops demonstrate normal wall thickness and caliber. No mesenteric hematoma. Extensive sigmoid diverticulosis. Nodes and vessels: No retroperitoneal or mesenteric adenopathy. Aorta and inferior vena cava are normal in size and enhancement. Miscellaneous: No paraspinal retroperitoneal hematomas. No hernias. PELVIS: Genitourinary: The urinary bladder has a normal wall thickness and is intact. Prostate gland is mildly enlarged. No pelvic hematoma or mass. No free fluid. Miscellaneous: No inguinal hernias or adenopathy. Bones: Pelvic ring and hip joints appear intact. No vertebral compression fractures. IMPRESSION: 1. Complex left 2nd through 5th rib fractures (fractured in two places), and with moderate overlap of the posterior fractures. 2. Comminuted scapular fracture involving the posterior inferior glenoid fossa. 3. Pleural parenchymal thickening, possibly pulmonary contusion in the left posterior apex underlying fractures. 4. Small residual apical and anterior left pneumothorax with anterior chest tube in place. 5. No other acute injuries in the chest, abdomen, or pelvis. 6. Findings of pulmonary fibrosis. 7. Hepatic hemangioma. Dictated by: Amanda Bonilla M.D. on 01/20/2022 at 16:11 Approved by: Amanda Bonilla M.D. on 01/20/2022 at 16:30
--- NOTE | 2022-01-20 16:25 | ED_ITS ---
HPI - Trauma General Chief Complaint: Extremity Injury, Upper Stated Complaint: Fall Time Seen by Provider: 01/20/22 14:35 Source: patient Mode of arrival: Ambulatory History of Present Illness HPI narrative: Patient is a 76-year-old male who presents after a fall. He states he was on his boat when he fell into the engine room about 5-6 feet landing primarily on his left shoulder he denies any in his head or having any loss of consciousness not on antiplatelet or anticoagulation medications. Severe pain appears uncomfortable. He was able to ambulate. Fortunately he called out to somebody who heard him and helped him get to the emergency department. Related Data Home Medications Medication Instructions Recorded Confirmed Reishi Mushroom Tea 1 cp PO DAILY 10/11/17 10/11/17 alprazolam 0.5 mg tablet 0.25 mg PO BEDTIME PRN Anxiety 10/11/17 10/11/17 coenzyme Q10 100 mg capsule 100 mg PO DAILY 10/11/17 10/11/17 (CoQ-10) milk thistle 1 cap PO DAILY 10/11/17 10/11/17 saw palmetto 1 cap PO DAILY 10/11/17 10/11/17 sildenafil 100 mg tablet (Viagra) 50 mg PO PRN PRN Sexual Activity 10/11/17 10/11/17 vitamin B complex 1 tab PO DAILY 10/11/17 10/11/17 Allergies Allergy/AdvReac Type Severity Reaction Status Date / Time codeine [CODEINE] AdvReac Mild nausea Unverified 07/06/17 12:06 Review of Systems Review of Systems Narrative: GENERAL: Denies chills, fatigue, malaise, fever, sweats, travel HEENT: Denies sinus pain, ear pain, sore throat, difficulty swallowing, neck pain RESPIRATORY: Denies dyspnea, cough, wheezing, hemoptysis, sputum. CARDIOVASCULAR: Denies chest pain, palpitations, orthopnea, edema GASTROINTESTINAL: Denies nausea, vomiting, abdominal pain, diarrhea, constipation, melena. : Denies dysuria, frequency, incontinence, hematuria, urinary retention, flank pain. MUSCULOSKELETAL: See HPI SKIN: No rash, no erythema, no pruritus NEUROLOGIC: Denies weakness, dizziness, headache, numbness, change in speech, confusion PSYCHIATRIC: No concerning psychosocial issues. 12 point review of systems is negative except for those stated above and HPI Patient History Social History Smoking Status: Never smoker Smoking Status: Never smoker alcohol intake frequency: holidays/special occasions only Substance Use Type: does not use Exam Initial Vital Signs Initial Vital Signs: Vital Signs Pulse Rate 71 01/20/22 14:30 Respiratory Rate 20 01/20/22 14:30 Blood Pressure 138/78 01/20/22 14:30 Pulse Oximetry 97 01/20/22 14:30 Oxygen Delivery Method 01/20/22 14:30 GENERAL: Well-appearing, well-nourished and in no acute distress. HEENT: Head normocephalic,, EOMI, pupils reactive, face symmetric, moist mucous membranes, no hemotympanum, no septal hematoma NECK: Supple, full range of motion, no step-offs, nontender on vertebrae CARDIOVASCULAR: Regular rate and rhythm without murmurs, rubs or gallops. RESPIRATORY: Breath sounds equal bilaterally, no wheezes rales or rhonchi. No crepitations, no subcutaneous air, chest is nontender, no signs of trauma ABDOMEN: Soft, nontender. Normoactive bowel sounds all 4 quadrants. No guarding or rebound. BACK: Nontender vertebrae, no step-offs, no contusions PELVIS: stable. EXTREMITIES: Normal range of motion, no clubbing or edema. Right upper extremity: Within normal limits Left upper extremity: Severe pain left shoulder AC separation sensation over deltoid sensation between the thumb and index finger strong distal radial pulse Right lower extremity: Within normal limits Left lower extremity:Within normal limits NEUROLOGICAL: Cranial nerves II through XII grossly intact. Normal gait and speech. SKIN: Warm, dry, no petechiae, no rashes or lesions, no contusions or ecchymosis Procedures Chest Tube Chest Tube 1: Chest Tube Location: left and anterior axillary line Size of Tube (cm): 28 Chest Tube Prep: Yes sterile drapes applied and other Local Anesthetic: lidocaine 1% and with epi Amount of anesthesia used (mL): 5 Incision Made With: #11 blade Post Procedure: sutured to skin Tube Drainage: none Amount of initial drainage (mL): 0 Post Procedure CXR?: Yes Patient Tolerated Procedure: Yes Procedural Sedation Consent signed: Yes Time out performed: Yes ASA Class: I Mallampati Airway Classification: Class I IV Propofol dose (mg): 75 Intraservice time/total sedation time (min): 15 ED Sedation Level: Moderate (Concious) Patient Tolerated Procedure: Well Complications: none Course Orders Ordered: ED Orders 01/20/22 14:40 XR shoulder LT min 2V Stat 01/20/22 14:53 CT UE LT wo con Stat 01/20/22 15:36 XR chest 1V Stat 01/20/22 16:19 CT cervical spine wo con Stat CT chest abd pel w con Stat CT head/brain wo con Stat 01/20/22 16:26 EKG-12 Lead Stat 01/20/22 17:28 CBC Auto Diff [Complete Blood Count AUTO DIFF] Stat CMP [Comprehensive Metabolic Panel] Stat PT [Prothrombin Time INR] Stat PTT [Partial Thromboplastin Time] Stat Troponin & CK Cardiac Panel Stat Acetaminophen (Acetaminophen 325 Mg Tablet) 650 mg PO Q6H ALEXANDER Enoxaparin Sodium (Enoxaparin 40 Mg/0.4 Ml Syringe) 40 mg SUBCUT DAILY ALEXANDER Hydromorphone HCl (Hydromorphone 1 Mg Inj) 1 mg IV Q4H PRN PRN Reason: Pain, Severe (7-10) Ibuprofen (Ibuprofen 400 Mg Tablet) 400 mg PO Q4H ALEXANDER Naloxone HCl (Naloxone 0.4 Mg/Ml Vial) 0.2 mg IV Q2MIN PRN PRN Reason: Opiate Reversal Oxycodone HCl (Oxycodone Ir 5 Mg Tablet) 5 mg PO Q3H PRN PRN Reason: Pain, Moderate (4-6) Discontinued Medications Hydromorphone HCl (Hydromorphone 1 Mg Inj) 1 mg IM NOW ONE Stop: 01/20/22 14:36 Last Admin: 01/20/22 14:46 Dose: 1 mg Documented By: CTS Hydromorphone HCl (Hydromorphone 0.5 Mg Inj) 0.5 mg IV NOW ONE Stop: 01/20/22 16:27 Last Admin: 01/20/22 17:06 Dose: 0.5 mg Documented By: CTS Hydromorphone HCl (Hydromorphone 0.5 Mg Inj) 0.5 mg IV NOW ONE Stop: 01/20/22 18:21 Last Admin: 01/20/22 18:25 Dose: 0.5 mg Sodium Chloride (Normal Saline 0.9%) 1,000 mls @ 1,000 mls/hr IV BOLUS ONE Stop: 01/20/22 16:39 Last Infusion: 01/20/22 17:48 Dose: 0 mls/hr Documented By: Admin: 01/20/22 16:00 Dose: 1,000 mls/hr Documented By: RAMAKRISHNA Ketorolac Tromethamine (Ketorolac 30 Mg/Ml Vial) 15 mg IM NOW ONE Stop: 01/20/22 14:36 Last Admin: 01/20/22 14:46 Dose: 15 mg Documented By: CTS Methocarbamol (Methocarbamol 500 Mg Tablet) 500 mg PO NOW ONE Stop: 01/20/22 14:36 Last Admin: 01/20/22 15:18 Dose: 500 mg Documented By: CTS Morphine Sulfate (Morphine 2 Mg/Ml Inj) 2 mg IV NOW ONE Stop: 01/20/22 16:20 Last Admin: 01/20/22 16:48 Dose: 2 mg Documented By: RAMAKRISHNA Propofol (Propofol 200 Mg/20 Ml Vial) 75 mg 1 mg/kg (75 mg) IV NOW ONE Stop: 01/20/22 15:41 Last Admin: 01/20/22 16:05 Dose: 75 mg Documented By: RAMAKRISHNA Vital Signs Vital signs: Vital Signs - 8 hr 01/20/22 14:45 01/20/22 14:30 01/20/22 15:52 Temperature 98.4 F Pulse Rate 89 71 77 Respiratory Rate 24 20 40 H Blood Pressure 145/90 H 138/78 Pulse Oximetry 100 97 97 Oxygen Delivery Method Room Air Room Air 01/20/22 15:00 01/20/22 16:00 01/20/22 15:55 Temperature Pulse Rate 77 66 71 Respiratory Rate 16 30 H 31 H Blood Pressure 144/74 H Pulse Oximetry 100 92 Oxygen Delivery Method Room Air 01/20/22 16:00 01/20/22 16:03 01/20/22 16:03 Temperature Pulse Rate 71 70 Respiratory Rate 28 H 23 Blood Pressure 186/89 H Pulse Oximetry 100 100 Oxygen Delivery Method 01/20/22 16:05 01/20/22 16:10 01/20/22 16:13 Temperature Pulse Rate 76 70 70 Respiratory Rate 28 H 28 H 29 H Blood Pressure Pulse Oximetry 99 94 97 Oxygen Delivery Method 01/20/22 16:13 01/20/22 16:15 01/20/22 16:15 Temperature Pulse Rate 69 Respiratory Rate 23 Blood Pressure 158/74 H 132/59 L Pulse Oximetry 99 Oxygen Delivery Method 01/20/22 16:20 01/20/22 16:21 01/20/22 16:21 Temperature Pulse Rate 69 66 Respiratory Rate 26 H 22 Blood Pressure 149/66 H Pulse Oximetry 99 99 Oxygen Delivery Method 01/20/22 16:25 01/20/22 16:25 01/20/22 16:30 Temperature Pulse Rate 67 Respiratory Rate 20 Blood Pressure 177/83 H 165/78 H Pulse Oximetry 100 Oxygen Delivery Method 01/20/22 16:35 01/20/22 16:45 01/20/22 16:50 Temperature Pulse Rate 75 82 Respiratory Rate 13 24 Blood Pressure 158/78 H Pulse Oximetry 100 100 Oxygen Delivery Method 01/20/22 17:00 Temperature Pulse Rate 72 Respiratory Rate 22 Blood Pressure Pulse Oximetry 98 Oxygen Delivery Method MDM - Trauma Lab Data Result diagrams: 01/20/22 17:28 01/20/22 17:28 Labs: Lab Results 01/20/22 01/20/22 01/20/22 Range/Units 17:28 17:28 17:28 WBC 13.6 H (4.5-11.0) X10^3/uL RBC 4.02 L (4.5-5.9) X10^6/uL Hgb 12.8 L (13.5-17.5) g/dL Hct 37.6 L (41-53) % MCV 93.7 (80-100) fL MCH 31.8 (26-34) PG MCHC 33.9 (30-36) % RDW 14.1 (11.6-14.8) % Plt Count 219 (150-400) X10^3/uL Neut % (Auto) 86.2 H (50-75) % Lymph % (Auto) 6.1 L (25-40) % Baxter % (Auto) 6.8 (3-14) % Eos % (Auto) 0.5 L (2-4) % Baso % (Auto) 0.4 (0-2) % Neut # (Auto) 49792 H (2437-5683) /uL Lymph # (Auto) 800 L (8262-3527) /uL Baxter # (Auto) 900 (0-900) /uL Eos # (Auto) 100 (0-450) /uL Baso # (Auto) 100 (0-100) /uL PT 11.7 (10.1-12.7) SECONDS INR 1.0 (0.9-1.3) APTT 25 L (26-36) SECONDS Sodium 135 L (137-145) mmol/L Potassium 3.9 (3.4-5.1) mmol/L Chloride 102 (98-107) mmol/L Carbon Dioxide 23 (22-32) mmol/L BUN 24 H (9-20) mg/dL Creatinine 1.04 (0.66-1.25) mg/dL Estimated GFR > 60 (>60) mL/min BUN/Creatinine Ratio 23.1 H (6-22) Glucose 106 (80-110) mg/dL Calcium 8.8 (8.4-10.2) mg/dL Total Bilirubin 0.7 (0.2-1.3) mg/dL AST 39 (17-59) IU/L ALT 21 (<50) IU/L Alkaline Phosphatase 53 (38-126) U/L Total Creatine Kinase 453 H (55-170) U/L CK-MB (CK-2) 5.57 H (<2.37) ng/mL CK-MB (CK-2) Rel Index 1.2 L (1.5-5.0) % Troponin I < 0.012 (0.01-0.034) ng/mL Total Protein 8.4 H (6.3-8.2) g/dL Albumin 4.2 (3.5-5.0) g/dL Globulin 4.2 H (1.7-4.1) g/dL Albumin/Globulin Ratio 1.0 (1.0-2.8) Imaging Data Extremity x-ray #1: Radiologist's Impression: ient: Kike Bellamy MR#: [id number] : 1945 Acct:[id number] Age/Sex: 76 / M Date of Service: 01/20/22 Loc: ED Accession Number: [id number] ?? Procedure: XR shoulder LT min 2V Ordering Provider: Haley Chacko PROCEDURE:? XR SHOULDER LT MIN 2V ? INDICATIONS:? R/o fx ? TECHNIQUE:? 3 views of the shoulder were acquired.? ? COMPARISON:? [facility], CT, CT UE LT WO CON, 01/20/2022, 14:56. ? FINDINGS:? ? Bones:? There is a moderately displaced fracture of the posterior inferior glenoid.? There is a moderately displaced comminuted fracture of the middle and inner thirds of the scapula.? Multiple left rib fractures are present. ? Soft tissues:? No suspicious soft tissue calcifications.? Left pneumothorax is present, as documented by recent CT examination. ? IMPRESSION:? 1. Left scapular and rib fractures. 2. Left pneumothorax. ? ? Dictated by: Roseann Dillon M.D. on 01/20/2022 at 15:14 ? Transcribed by: ANETTE on 01/20/2022 at 15:18? ? CT UE: Radiologist's Impression: Signed Patient: Kike Bellamy MR#: [id number] : 1945 Acct:[id number] Age/Sex: 76 / M Date of Service: 01/20/22 Loc: ED Accession Number: [id number] ?? Procedure: CT UE LT wo con Ordering Provider: Haley Chacko PROCEDURE:? CT UE LT WO CON ? INDICATIONS:? trauma ? TECHNIQUE:? Noncontrast 1-1.5 mm thick sections acquired from the acromioclavicular joint to the inferior scapula, with coronal and sagittal reformatting.? ? COMPARISON:? [facility], CR, XR SHOULDER LT MIN 2V, 01/20/2022, 14:44. ? FINDINGS:? Image quality:? Excellent.? ? Bones:? Remarkably comminuted displaced scapular fracture with innumerable fragments present.? Markedly comminuted posterior lateral 2nd rib fracture nondisplaced lateral left 3rd rib fracture.? Comminuted lateral 4th rib fracture.? Nondisplaced lateral 5th rib fracture. ? Soft tissues:? Large left pneumothorax.? Underlying interstitial pulmonary fibrosis and pleural thickening. ? ? IMPRESSION:? ? 1. There is a remarkably comminuted displaced scapular fracture.? The scapular wing is markedly disrupted. ? 2. There are numerous left rib fractures, involving the 2nd through 6th ribs. ? 3. Large left pneumothorax. ? 4. Pulmonary interstitial fibrosis and pleural thickening.? ? ? Dictated by: Yan Avila M.D. on 01/20/2022 at 15:41 ? ? Chest x-ray: Radiologist's Impression: Kike Bellamy MR#: [id number] : 1945 Acct:[id number] Age/Sex: 76 / M Date of Service: 01/20/22 Loc: ED Accession Number: [id number] ?? Procedure: XR chest 1V Ordering Provider: Josefinaw,Haley ONEILL ADDENDUMCORRECTION Corrected on: 01/20/2022; ? ? PROCEDURE:? XR CHEST 1V ? INDICATIONS:? pneumothorax, trauma ? TECHNIQUE:? One view of the chest was acquired.? ? COMPARISON:? [facility], CT, CT UE LT WO CON, 01/20/2022, 14:56.? [facility], CR, XR CHEST 1V, 10/11/2017, 11:45. ? FINDINGS:? ? Surgical changes and devices:? None ? Lungs and pleura:? Large left pneumothorax.? There is a vague density projecting over the left lung apex which likely represents chest wall hematoma and not an intrinsic lung lesion.? Bilateral pulmonary interstitial fibrosis.? No pleural effusions or pneumothorax.? ? Mediastinum:? Mediastinal contours appear normal.? Heart size is normal.? ? Bones and chest wall:? Markedly comminuted scapular fracture.? Multiple left rib fractures. ? IMPRESSION:? ? 1.? Large left pneumothorax. ? 2. Pulmonary interstitial fibrosis. ? 3. Extensively comminuted scapular fracture and multiple left rib fractures.? ? ? Comment: Findings were discussed with Haley Chacko on? 01/20/2022 at 1643 hours ? ? Dictated by: Yan Avila M.D. on 01/20/2022 at 16:40 ? ? Approved by: Yan Avila M.D. on 01/20/2022 at 16:44 ? ?Dictated by: Yan Avila M.D. on 01/20/2022 at 16:50 ? ? Approved by: Yan Avila M.D. on 01/20/2022 at 16:50 ? CT - cervical spine: Radiologist's Impression: ient: Kike Bellamy MR#: [id number] : 1945 Acct:[id number] Age/Sex: 76 / M Date of Service: 01/20/22 Loc: ED Accession Number: [id number] ?? Procedure: CT cervical spine wo con Ordering Provider: Autumn Friend D.O. PROCEDURE:? CT CERVICAL SPINE WO CON ? INDICATIONS:? fall ? TECHNIQUE:? Noncontrast 3 mm thick sections acquired from the skull base to the T4 level.? Sagittal and coronal reformats were then constructed.? For radiation dose reduction, the following was used:? automated exposure control, adjustment of mA and/or kV according to patient size.? ? COMPARISON:? [facility], CT, CT CERVICAL SPINE WO CON, 10/11/2017, 11:52. ? FINDINGS:? Image quality:? Excellent.? ? Bones:? Grade 1 C2 on C3 anterolisthesis is redemonstrated and is slightly increased in extent when compared with the CT dated October 11, 2017. There is trace retro listhesis, as before at C4-5, C5-6, and C6-7.? Severe degenerative changes are redemonstrated.? No acute compression deformities. ? There is a comminuted displaced fracture of both the posterior and anterior aspect of the 2nd and 3rd ribs.? Comminuted fractures are also visualized within the posterior aspect of the 4th rib, 5th rib, and 6th rib.? The anterior aspects of these ribs are not visualized and fractures cannot be excluded.? There is a comminuted, displaced fracture of the left scapular body where visualized. ? Soft tissues:? There is a small left apical pneumothorax which is incompletely characterized on this limited view of the chest.. ? ? IMPRESSION:? ? 1. No acute cervical spine injury. ? 2. Severe degenerative change of the cervical spine with increased anterolisthesis at C2-3 when compared with the study from 2018. Although this may be a chronic degenerative change, ligamentous laxity could also be considered in the differential. ? 3. Multiple comminuted left rib fractures.? Anterior and posterior fractures at the 2nd and 3rd left ribs raise the suspicion for flail chest. ? 4. Partially characterized left apical pneumothorax. ? 5. Comminuted, displaced left scapular body fracture. ? Dictated by: Lanie Hall M.D. on 01/20/2022 at 17:00 ? ? CT scan - abdomen/pelvis: Radiologist's Impression: t: Kike Bellamy MR#: [id number] : 1945 Acct:[id number] Age/Sex: 76 / M Date of Service: 01/20/22 Loc: ED Accession Number: [id number] ?? Procedure: CT chest abd pel w con Ordering Provider: Autumn Friend D.O. PROCEDURE:? CT CHEST ABD PEL W CON ? INDICATIONS:? fall pneumo scapula fx ? TECHNIQUE:? After the administration of intravenous contrast, 5 mm thick sections acquired from the lung apices to the symphysis.? 2.5 mm thick coronal and sagittal reformats were acquired. ?Additional 7 mm thick coronal maximum intensity projection (MIP) reformats acquired through the lungs.? Optional 10-minute delayed imaging may be performed from the kidneys to the bladder.? For radiation dose reduction, the following was used:? aut omated exposure control, adjustment of mA and/or kV according to patient size.? ? COMPARISON:? [facility], CT, CT CHEST ABD PEL W CON, 10/11/2017, 11:52. ? FINDINGS:? Image quality:? Excellent.? ? CHEST:? Lungs:? There is a small apical and anteriorly layering left pneumothorax.? A chest tube is in place anteriorly.? The left lung volume is low and there are peripheral reticulations, and honeycombing throughout the lungs, left lung base most extensive.? Posteriorly in the left lung apex, there is pleural thickening and pleural base consolidations suggesting pulmonary contusion.? There is no pleural effusion or hemothorax.? The airways are patent. ? Mediastinum:? No mediastinal hematomas.? Heart size is normal.? No pericardial effusion.? Thoracic aorta and pulmonary arteries demonstrate normal size and enhancement.? No mediastinal or hilar adenopathy.? Esophagus is normal in caliber.? No hiatal hernia.? ? Chest wall:? There left displaced and impacted rib fractures posteriorly, 2nd, 3rd, 4th, 5th.? Fifth rib fragments are overlapping by 1.7 cm.? Second rib also demonstrates minimally displaced fracture anteriorly.? 3rd 4th and 5th ribs are also fractured laterally.? There is a comminuted left scapular fracture involving the posterior inferior aspect of the glenoid fossa.? The glenohumeral joint remains normally located.? The clavicle appears intact.? No visible vertebral body fractures.? There is intramuscular and subcutaneous emphysema through the left pectoralis muscle adjacent to the chest tube. ?There is swelling of the left subscapularis and latissimus muscles.? No acute hematoma. ? ? ABDOMEN:? Solid organs:? The liver is normal size.? There is a probable hemangioma in the lateral inferior right lobe liver tip as it was present in 2018. No liver lacerations.? The spleen, pancreas, and kidneys are intact without laceration or hematoma.? There is an exophytic cyst arising from the lower pole of the right kidney, chronic.? Adrenal glands demonstrate appropriate attenuation. ? Peritoneum and bowel:? No free fluid or air.? Unenhanced bowel loops demonstrate normal wall thickness and caliber.? No mesenteric hematoma.? Extensive sigmoid diverticulosis. ? Nodes and vessels:? No retroperitoneal or mesenteric adenopathy.? Aorta and inferior vena cava are normal in size and enhancement.? ? Miscellaneous:? No paraspinal retroperitoneal hematomas.? No hernias. ? ? PELVIS:? Genitourinary:? The urinary bladder has a normal wall thickness and is intact.? Prostate gland is mildly enlarged.? No pelvic hematoma or mass.? No free fluid. ? Miscellaneous:? No inguinal hernias or adenopathy.? ? Bones:? Pelvic ring and hip joints appear intact.? No vertebral compression fractures.? ? ? IMPRESSION:? ? 1. Complex left 2nd through 5th rib fractures (fractured in two places), and with moderate overlap of the posterior fractures. ? 2. Comminuted scapular fracture involving the posterior inferior glenoid fossa. ? 3. Pleural parenchymal thickening, possibly pulmonary contusion in the left posterior apex underlying fractures. ? 4. Small residual apical and anterior left pneumothorax with anterior chest tube in place. ? 5. No other acute injuries in the chest, abdomen, or pelvis. ? 6. Findings of pulmonary fibrosis. ? 7. Hepatic hemangioma.? Dictated by: Amanda Bonilla M.D. on 01/20/2022 at 16:11 ? ? Approved by: Amanda Bonilla M.D. on 01/20/2022 at 16:30 ? CT scan - head: Radiologist's Impression: Signed Patient: Kike Bellamy MR#: [id number] : 1945 Acct:[id number] Age/Sex: 76 / M Date of Service: 01/20/22 Loc: ED Accession Number: [id number] ?? Procedure: CT head/brain wo con Ordering Provider: Autumn Friend D.O. PROCEDURE:? CT HEAD/BRAIN WO CON ? INDICATIONS:? fall ? TECHNIQUE:? Noncontrast 4.5 mm thick angled axial sections acquired from the foramen magnum to the vertex, with coronal and sagittal reformats.? For radiation dose reduction, the following was used:? automated exposure control, adjustment of mA and/or kV according to patient size.? ? COMPARISON:? [facility], CT, CT HEAD/BRAIN WO CON, 10/11/2017, 11:52. ? FINDINGS:? Image quality:? Excellent.? ? CSF spaces:? Basal cisterns are patent.? No extra-axial fluid collections.? The ventricles are symmetric in size and shape.? ? Brain:? No intracranial bleeds or masses.? There is cerebral volume loss for age, with resultant ventricular and sulcal prominence.? There are periventricular and deep white matter chronic small vessel ischemic changes.? There is intracranial internal carotid artery atherosclerosis.? ? Skull and face:? Calvarium and visualized facial bones appear intact, without suspicious lesions.? ? Sinuses:? Visualized sinuses and mastoids are clear.? ? IMPRESSION:? ? 1. No acute intracranial findings. ? ? Dictated by: Lanie Hall M.D. on 01/20/2022 at 17:05 ? ? [facility] Narrative Medical decision making narrative: Patient presents as a fall with shoulder pain. He does sound that she has a scapula fracture and then sent to CT for upper extremity. he then is found to have large left-sided pneumothorax. Pneumothorax is treated with an anterior chest tube. He then is sent back to the CT scanner for trauma evaluation. He is found to have multiple rib fractures posterior to through 6 with some broken in 2 places. No other injuries are found. Orthopedics has been consulted in regards to comminuted scapular fracture which is to be treated with a sling. After chest tube placement patient is surprisingly doing much better. Dr. Bishop consult in regards to chest tube management trauma admission which he kindly agrees to Discharge Plan Departure Patient Disposition: Admitted As Inpatient Clinical Impression: Rib fractures, Pneumothorax, Abdominal pain, Scapular fracture Admit Date/Time: 01/20/22 18:02 Admit Provider: Jessee Green
[2022-01-20] MEDS: MORPHINE 2 MG/ML INJ IV (16:48)
[2022-01-20] MEDS: HYDROMORPHONE 0.5 MG INJ IV ×2 (17:06→18:25)
--- NOTE | 2022-01-20 17:21 | PC.NURSE ---
Dr Salas in to consult on patient
--- NOTE | 2022-01-20 17:23 | PM.HP.1 ---
History of Present Illness History of Present Illness Date Patient Seen: 01/20/22 Time Patient Seen: 17:23 Date of Onset of Symptoms: 01/20/22 Chief complaint: Fall Narrative: This is a pleasant 76-year-old gentleman who was on a boat when he fell and landed on his left shoulder and a posterior chest wall. He noted the acute onset of severe shoulder pain. Patient History Family & Social History Tobacco & Substance use: Smoking Status Never smoker alcohol intake frequency holiday/special occasion Substance Use Type does not use Meds Home Medications and Allergies Home Medications Medication Instructions Recorded Confirmed Type Reishi Mushroom Tea 1 cp PO DAILY 10/11/17 10/11/17 History alprazolam 0.5 mg tablet 0.25 mg PO BEDTIME PRN Anxiety 10/11/17 10/11/17 History coenzyme Q10 100 mg capsule 100 mg PO DAILY 10/11/17 10/11/17 History (CoQ-10) milk thistle 1 cap PO DAILY 10/11/17 10/11/17 History saw palmetto 1 cap PO DAILY 10/11/17 10/11/17 History sildenafil 100 mg tablet (Viagra) 50 mg PO PRN PRN Sexual Activity 10/11/17 10/11/17 History vitamin B complex 1 tab PO DAILY 10/11/17 10/11/17 History Allergies Allergy/AdvReac Type Severity Reaction Status Date / Time codeine [CODEINE] AdvReac Mild nausea Unverified 07/06/17 12:06 Exam Vital Signs (past 8 hours): - 01/20/22 14:45 01/20/22 14:30 01/20/22 15:52 Temperature 98.4 F Pulse Rate 89 71 77 Respiratory Rate 24 20 40 H Blood Pressure 145/90 H 138/78 Pulse Oximetry 100 97 97 Oxygen Delivery Method Room Air Room Air 01/20/22 15:00 01/20/22 16:00 01/20/22 15:55 Temperature Pulse Rate 77 66 71 Respiratory Rate 16 30 H 31 H Blood Pressure 144/74 H Pulse Oximetry 100 92 Oxygen Delivery Method Room Air 01/20/22 16:00 01/20/22 16:03 01/20/22 16:03 Temperature Pulse Rate 71 70 Respiratory Rate 28 H 23 Blood Pressure 186/89 H Pulse Oximetry 100 100 Oxygen Delivery Method 01/20/22 16:05 01/20/22 16:10 01/20/22 16:13 Temperature Pulse Rate 76 70 70 Respiratory Rate 28 H 28 H 29 H Blood Pressure Pulse Oximetry 99 94 97 Oxygen Delivery Method 01/20/22 16:13 01/20/22 16:15 01/20/22 16:15 Temperature Pulse Rate 69 Respiratory Rate 23 Blood Pressure 158/74 H 132/59 L Pulse Oximetry 99 Oxygen Delivery Method 01/20/22 16:20 01/20/22 16:21 01/20/22 16:21 Temperature Pulse Rate 69 66 Respiratory Rate 26 H 22 Blood Pressure 149/66 H Pulse Oximetry 99 99 Oxygen Delivery Method 01/20/22 16:25 01/20/22 16:25 01/20/22 16:30 Temperature Pulse Rate 67 Respiratory Rate 20 Blood Pressure 177/83 H 165/78 H Pulse Oximetry 100 Oxygen Delivery Method 01/20/22 16:35 01/20/22 16:45 01/20/22 16:50 Temperature Pulse Rate 75 82 Respiratory Rate 13 24 Blood Pressure 158/78 H Pulse Oximetry 100 100 Oxygen Delivery Method 01/20/22 17:00 Temperature Pulse Rate 72 Respiratory Rate 22 Blood Pressure Pulse Oximetry 98 Oxygen Delivery Method Oxygen Delivery Method Room Air Narrative Exam Narrative: He is resting comfortably in bed, HEENT is benign is neck is supple, he has a chest tube in place on the left he does not appear to have acute dyspnea, he has breath sounds in bilateral lungs. His cor is regular rate and rhythm, abdomen is benign, examination of his left shoulder shows focal tenderness to palpation along the posterior aspect of his shoulder, he has some moderate pain with gentle glenohumeral motion, is nontender over his AC joint, he has good range of motion in the left elbow wrist and hand, his skin noted to be intact, Objective Labs Labs: X-rays show a comminuted left scapula body fracture, there is no extension into the glenoid, the humerus is intact, there was multiple rib fractures, there is a pneumothorax, Assessment & Plan Assessment and plan (1) Scapular fracture: Status: Acute (2) Pneumothorax: Status: Acute (3) Rib fractures: Status: Acute Plan He has a comminuted scapular fracture but it is in the body. There does not appear to be extension into the glenoid. His glenohumeral joint is well aligned. I think he can be treated with a sling for his scapula fracture. He also has a pneumothorax which is being addressed by the emergency room and general surgery. He has multiple rib fractures. Orthopedically he can follow up with our clinic and a week to 10 days with 1 of our physician's assistants for repeat x-rays of his scapula. Time Spent With Patient Critical Care time: I spent a total of [] minutes of critical care time on this patient's care today; this time is exclusive of procedural time.
[2022-01-20 17:46] LABS: Add Manual Diff / Slide Review NO; Basophils Absolute Auto 100 /uL (0-100); Basophils Percent Auto 0.4 % (0-2); Eosinophils Absolute Auto 100 /uL (0-450); Eosinophils Percent Auto 0.5 % (2-4); Hematocrit 37.6 % (41-53); Hemoglobin 12.8 g/dL (13.5-17.5); Lymphocytes Absolute Auto 800 /uL (1100-4500); Lymphocytes Percent Auto 6.1 % (25-40); Mean Corpuscular HGB Conc 33.9 % (30-36); Mean Corpuscular Hemoglobin 31.8 PG (26-34); Mean Corpuscular Volume 93.7 fL (80-100); Monocytes Absolute Auto 900 /uL (0-900); Monocytes Percent Auto 6.8 % (3-14); Neutrophils Absolute Auto 11700 /uL (1500-7000); Neutrophils Percent Auto 86.2 % (50-75); Platelet Count 219 X10^3/uL (150-400); Red Blood Cell Count 4.02 X10^6/uL (4.5-5.9); Red Cell Distribution Width 14.1 % (11.6-14.8); White Blood Cell Count 13.6 X10^3/uL (4.5-11.0)
--- NOTE | 2022-01-20 17:50 | PC.NURSE ---
chest tube to water seal. pt denies cp/sob/dizziness. 98% on RA.
[2022-01-20 17:54] LABS: Prothrombin Time 11.7 SECONDS (10.1-12.7)
[2022-01-20 17:56] LABS: PTT Partial Thromboplastin Tim 25 SECONDS (26-36)
[2022-01-20 18:00] LABS: Alanine Aminotransferase 21 IU/L (<50); Albumin 4.2 g/dL (3.5-5.0); Alkaline Phosphatase 53 U/L (38-126); Aspartate Aminotransferase 39 IU/L (17-59); BUN Creatinine Ratio 23.1 (6-22); Bilirubin Total 0.7 mg/dL (0.2-1.3); Blood Urea Nitrogen 24 mg/dL (9-20); Calcium 8.8 mg/dL (8.4-10.2); Carbon Dioxide 23 mmol/L (22-32); Chloride 102 mmol/L (98-107); Creatine Kinase 453 U/L (55-170); Estimated Glomerular Filt Rate > 60 mL/min (>60); Globulin 4.2 g/dL (1.7-4.1); Glucose 106 mg/dL (80-110); HEMOLYSIS < 15 (0-50); Potassium 3.9 mmol/L (3.4-5.1); Sodium 135 mmol/L (137-145); Total Protein 8.4 g/dL (6.3-8.2)
[2022-01-20 18:09] LABS: Troponin I < 0.012 ng/mL (0.01-0.034)
[2022-01-20 18:15] LABS: CKMB % Relative Index 1.2 % (1.5-5.0); Creatine Kinase MB 5.57 ng/mL (<2.37)
--- NOTE | 2022-01-20 18:23 | PM.CALLCOV.1 ---
Call Coverage Note Note Date of Patient Contact: 01/20/22 Time of Patient Contact: 18:23 Narrative of Care Provided: 76 y.o man sp traumatic fall. Hemodynamically stable. Labs, CT Head, C/A/P and upper extremity films reviewed. Multiple rib fractures and left pneumothorax. -Admit Multi modal Pain control Chest tube to low wall suction Sling CXR in AM Full consult note to follow
[2022-01-20] MEDS: IBUPROFEN 400 MG TABLET PO ×2 (19:35→22:58)
[2022-01-20] MEDS: ACETAMINOPHEN 325 MG TABLET 650 MG PO (19:35)
[2022-01-20] MEDS: OXYCODONE IR 5 MG TABLET PO (19:36)
[2022-01-20 20:20] LABS: COVID19 -Nasal RAPID Negative (Negative)
[2022-01-20] MEDS: HYDROMORPHONE 1 MG INJ IV (22:59)
[2022-01-21] VITALS (11 sets, daily range): BP systolic 110–161; BP diastolic 56–90; PULSE 67–84; RESP 16–20; TEMP 36.3–36.6; O2SAT 95–99
[2022-01-21] MEDS: ACETAMINOPHEN 325 MG TABLET 650 MG PO (01:00)
[2022-01-21] MEDS: OXYCODONE IR 5 MG TABLET PO ×4 (01:00→22:21)
[2022-01-21] MEDS: IBUPROFEN 400 MG TABLET PO ×3 (02:53→10:51)
[2022-01-21] MEDS: HYDROMORPHONE 1 MG INJ IV ×5 (02:54→21:16)
[2022-01-21] MEDS: ENOXAPARIN 40 MG/0.4 ML SYRINGE SUBCUT (08:12)
--- NOTE | 2022-01-21 09:07 | PM.HP.1 ---
History of Present Illness History of Present Illness Date Patient Seen: 01/21/22 Time Patient Seen: 09:09 Chief complaint: Fall Narrative: 76-year-old man admitted after a traumatic fall yesterday. Working on his boat and fell approximately 5-8 feet landing on directly on his left chest wall. He did not strike his head or lose consciousness. He presented to the emergency room yesterday afternoon he was hemodynamically stable with complaint of left chest pain. He underwent CT head chest abdomen pelvis and left upper extremity which demonstrated multiple left rib fractures, left pneumothorax and a left scapular fracture. Chest tube was placed in the emergency room with the resolution of his pneumothorax. Orthopedics evaluated the patient and the scapular fracture is non operative he is placed in a sling. Today he is feeling overall improved from yesterday but continues stab significant left chest pain with inspiration. No new patient concerns since admission. Patient History Family & Social History Social History: household members none Prior Living Arrangements Other Safety & Behavioral: Feels Safe in Current Yes Environment Been Physically Hurt or No Threatened By a Person Tobacco & Substance use: Smoking Status Never smoker alcohol intake current alcohol intake frequency holiday/special occasion Substance Use Type does not use Meds Home Medications and Allergies Home Medications Medication Instructions Recorded Confirmed Type Reishi Mushroom Tea 1 cp PO DAILY 10/11/17 01/20/22 History coenzyme Q10 100 mg capsule 100 mg PO DAILY 10/11/17 01/20/22 History (CoQ-10) milk thistle 1 cap PO DAILY 10/11/17 01/20/22 History saw palmetto 1 cap PO DAILY 10/11/17 01/20/22 History sildenafil 100 mg tablet (Viagra) 50 mg PO PRN PRN Sexual Activity 10/11/17 01/20/22 History vitamin B complex 1 tab PO DAILY 10/11/17 01/20/22 History doxepin 6 mg tablet 6 mg PO DAILY 01/20/22 01/20/22 History Allergies Allergy/AdvReac Type Severity Reaction Status Date / Time codeine [CODEINE] AdvReac Mild nausea Verified 01/20/22 19:27 Exam Vital Signs (past 8 hours): - 01/21/22 03:00 01/21/22 02:00 01/21/22 07:25 Temperature 97.3 F L 97.3 F L Pulse Rate 84 68 Respiratory Rate 20 16 Blood Pressure 158/90 H 161/83 H Pulse Oximetry 98 98 99 Oxygen Delivery Method Room Air Oxygen Flow Rate 0 0 Oxygen Delivery Method Room Air Oxygen Flow Rate 0 Narrative Exam Narrative: General adult male alert oriented no acute distress Neck trachea midline no JVD Chest nonlabored respiration Abdomen soft nontender nondistended Extremities warm well perfused left upper extremity in sling. Objective Labs Result Diagrams: 01/20/22 17:28 01/20/22 17:28 Labs: Laboratory Results - last 24 hr 01/20/22 01/20/22 01/20/22 17:28 17:28 17:28 WBC 13.6 H RBC 4.02 L Hgb 12.8 L Hct 37.6 L MCV 93.7 MCH 31.8 MCHC 33.9 RDW 14.1 Plt Count 219 Neut % (Auto) 86.2 H Lymph % (Auto) 6.1 L [place] % (Auto) 6.8 Eos % (Auto) 0.5 L Baso % (Auto) 0.4 Neut # (Auto) 58335 H Lymph # (Auto) 800 L [place] # (Auto) 900 Eos # (Auto) 100 Baso # (Auto) 100 PT 11.7 INR 1.0 APTT 25 L Sodium 135 L Potassium 3.9 Chloride 102 Carbon Dioxide 23 BUN 24 H Creatinine 1.04 Estimated GFR > 60 BUN/Creatinine Ratio 23.1 H Glucose 106 Calcium 8.8 Total Bilirubin 0.7 AST 39 ALT 21 Alkaline Phosphatase 53 Total Creatine Kinase 453 H CK-MB (CK-2) 5.57 H CK-MB (CK-2) Rel Index 1.2 L Troponin I < 0.012 Total Protein 8.4 H Albumin 4.2 Globulin 4.2 H Albumin/Globulin Ratio 1.0 SARS-CoV-2 (PCR) 01/20/22 18:14 WBC RBC Hgb Hct MCV MCH MCHC RDW Plt Count Neut % (Auto) Lymph % (Auto) [place] % (Auto) Eos % (Auto) Baso % (Auto) Neut # (Auto) Lymph # (Auto) [place] # (Auto) Eos # (Auto) Baso # (Auto) PT INR APTT Sodium Potassium Chloride Carbon Dioxide BUN Creatinine Estimated GFR BUN/Creatinine Ratio Glucose Calcium Total Bilirubin AST ALT Alkaline Phosphatase Total Creatine Kinase CK-MB (CK-2) CK-MB (CK-2) Rel Index Troponin I Total Protein Albumin Globulin Albumin/Globulin Ratio SARS-CoV-2 (PCR) Negative Assessment & Plan Assessment and plan (1) Pneumothorax: Problem details: 76-year-old man status post fall with multiple left rib fractures, left pneumothorax and a left scapular fracture. Rib fractures multimodal pain control Left pneumothorax chest tube switched to water seal this morning follow-up x-ray today Left scapular fracture sling non op VT prophylaxis Lovenox -PT OT Status: Acute (2) Rib fractures: Status: Acute Time Spent With Patient Critical Care time: I spent a total of [] minutes of critical care time on this patient's care today; this time is exclusive of procedural time. Quality VTE Deep Vein Thrombosis/Pulmonary Embolism Present on Admission: No
--- NOTE | 2022-01-21 09:13 | DI.RAD.S_ITS ---
PROCEDURE: XR CHEST 1V INDICATIONS: L pnx chest tube on water seal TECHNIQUE: One view of the chest was acquired. COMPARISON: [facility], CR, XR CHEST 1V, 01/20/2022, 16:16. FINDINGS: Surgical changes and devices: Left-sided chest tube is again seen. Lungs and pleura: Trace left pleural effusion is seen. Small left apical pneumothorax is noted now measures 9 mm in craniocaudal dimension not significantly changed from previous day. Patchy infiltrate/atelectasis are seen scattered in bilateral lung nava. No right-sided pneumothorax. Mediastinum: Tortuous thoracic aorta is seen. Heart size is normal. Bones and chest wall: No suspicious bony lesions. Overlying soft tissues appear unremarkable. IMPRESSION: Stable appearing small left apical pneumothorax now measures 9 mm in craniocaudal dimension. Small patchy infiltrate/atelectasis in bilateral mid to lower lung nava. No right-sided pneumothorax. Trace left pleural effusion. Dictated by: Lane Willett M.D. on 01/21/2022 at 9:43 Approved by: Lane Willett M.D. on 01/21/2022 at 9:44
--- NOTE | 2022-01-21 11:00 | PT.IIE ---
Current Diagnoses Pneumothorax, unspecified (01/20/22) Multiple fractures of ribs, unspecified side, initial encounter for closed fracture (01/20/22) Fracture of unspecified part of scapula, unspecified shoulder, initial encounter for closed fracture (01/20/22) Physical Therapy Inpatient Evaluation/Re-Eval M1 PT/OT-IP Prior Functional Status Start: 01/21/22 12:31 Freq: NEEDED Status: Active Protocol: Document 01/21/22 11:00 AB (Rec: 01/21/22 12:41 [email or web address]) Medical Review Prior Functional Status Medical History Reviewed Yes Communication able to make needs known Mobility and Gait pt stated that he is independent with all mobilities and ambulation without AD Social History Household Members none Living Arrangements Other Comment pt lives on a boat ( has a ladder that he has to climb up to get into) but sleeps on his camper; stated that depending if son will be able to assist him, he might go to his son's house initially; also stated that he can just go to his camper for now. home set up below is regarding pt's campter Number of Floors (Floors) One Floor Number of Stairs To Enter/Railing? 2 steps to enter without rails Home Environment Standard Height Toilet Additional Social History Comment pt stated that he takes a shower at [employer] pt has a walking stick M2 PT-IP Current Condition Start: 01/21/22 12:31 Freq: NEEDED Status: Active Protocol: Document 01/21/22 11:00 AB (Rec: 01/21/22 12:41 [email or web address]) Physical Therapy Current Condition Current Condition Evaluation Date 01/21/22 Treatment Diagnosis s/p fall; L scapular fx; difficulty in walking Onset Date 01/20/22 M3 PT-IP Subjective Start: 01/21/22 12:31 Freq: NEEDED Status: Active Protocol: Document 01/21/22 11:00 AB (Rec: 01/21/22 12:41 [email or web address]) Subjective Physical Therapy Visit Type Type Initial Evaluation Visit Start Time 11:00 Visit Stop Time 11:25 Total Visit Minutes 25 Number of SALESPERSON CORSETS Visits 0 Physical Therapy Visit Comments Patient Comments pt initially refusing PT and stating that he just wants to rest but agreed to get up and walk after encouragement Therapy Pain Assessment Pain When Pain Assessed At Rest Pain Present Pain Present Pain Reported Location Left Shoulder Intensity 8 Scale Used Numeric (0 - 10) M4 PT-IP Mobility and Gait Start: 01/21/22 12:31 Freq: NEEDED Status: Active Protocol: Document 01/21/22 11:00 AB (Rec: 01/21/22 12:41 AB [id number]) PT-Bed Mobility Assessment Supine to Sit Supine to Sit Independent,Head of Bed Elevated Sit to Supine Sit to Supine Independent,Head of Bed Elevated PT-Transfer Assessment Sit to and From Stand Sit to and from Stand Independent Equipment Transfer Assistive Device None Orthotic/Prosthetic Devices or Brace: Yes Comments Mobility Comments educated pt on L UE precautions. pt directs his own care and initially refusing PT and stated that it has only been 2 days since his fall and needs to rest. completed supine to sit mod I with HOB elevated. ambulated in room without AD mod I. No LOB. completed up/down step stool without AD SBA. pt stated that he does not want PT. pt went back to bed and mod I with bed mobility. pt stated that he will mobilize with nurses. informed pt regarding sling management and positioning but pt refused readjustment of sling and stated that whatever position the sling is, it will cause him pain and to better leave it alone. call light and table placed within reach. Gait Assessment Gait Gait Assistance Required: Independent Distance (Feet) 50 Able to Maintain Weight Bearing Status Yes During Gait Assistive Devices Assistive Device None Orthotic/Prosthetic Devices or Brace: Yes Stair Climbing Assessment Evaluation Level of Assist On Stairs Standby Assistance Technique/Endurance Stair Climbing Technique Step to Step Number of Steps Climbed 1 Query Text: Stair Climbing Set # Repetitions (reps) 2 PT-Balance Assessment Sitting Balance and Reactions Static Sitting Balance Ability Normal Dynamic Sitting Balance Ability Normal Standing Balance and Reactions Static Standing Balance Ability Good Dynamic Standing Balance Ability Good Device Used without AD M5 PT-IP Objective Assessments Start: 01/21/22 12:31 Freq: NEEDED Status: Active Protocol: Document 01/21/22 11:00 AB (Rec: 01/21/22 12:41 AB [id number]) Orientation Orientation/Cognition Level of Alertness Alert Orientation Name,Place,Situation Language Function Ability No Deficits Noted Safety Awareness Decreased Safety Awareness Memory Description No Deficits Noted Gross Range of Motion Lower Extremity ROM Assessment Within Functional Limits Strength Lower Extremity Strength Assessment Within Functional Limits Coordination Assessment Gross Coordination Gross Coordination WNL Sensation Assessment Sensation Gross Sensation WNL Muscle Tone Muscle Tone WNL Yes M6 PT-IP Treatment Start: 01/21/22 12:31 Freq: NEEDED Status: Active Protocol: Document 01/21/22 11:00 AB (Rec: 01/21/22 12:41 AB [id number]) Physical Therapy Treatment Education Education Provided Safety M7 PT-IP Assessment and Plan Start: 01/21/22 12:31 Freq: NEEDED Status: Active Protocol: Document 01/21/22 11:00 AB (Rec: 01/21/22 12:41 AB [email or web address]) PT Summary Assessment and Plan Potential Rehabilitation Potential Fair Status of Condition at Evaluation Stable Summary Impairments Pain,ROM,Strength,Balance, Coordination,Sensation,Tone, Cognition,Bed Mobility, Transfers,Gait,Activity Tolerance Assessment Summary PT eval completed. Pt is modified independent with bed mobility and ambulation without AD. Pt refusing further PT intervention. No further PT indicated at this time. Frequency of Treatment Frequency Of Treatment Discharge Precautions Other Precautions L scapular fx: sling on Weight Bearing Status Weight Bearing Status Non-Weight Bearing Allowed Weight Bearing Amount (enter % LUE NWB or #) (%) Recommendations To Nursing Amount of Assist Needed Standby Assistance Discharge Recommendations PT Discharge Recommendations Home,Outpatient PT Transportation Needs at Discharge Private Vehicle
--- NOTE | 2022-01-21 11:40 | CM.DANOTE ---
DCP: Case received, EMR reviewed and met with patient. Introduced self and role. Was able to obtain information regarding patient's baseline activity level prior to hospitalization, as well as his current living situation. DCP assessment completed with information currently available. Patient is a 76 year old male who admitted yesterday afternoon to the care of the hospitalist team. PCP: Confirmed: Dr. Lala. Payer: confirmed: Medicare/Commercial Insurance. Patient came to the hospital via private vehicle secondary to a fall that occurred on his boat. Patient was doing some work on his boat, which he currently lives on, and had fallen about 5-6 feet into the engine room, after leaving the myles opened. Patient had been on the ground, but was able to get himself up and called out, when someone had heard him and assisted in getting patient to the emergency room. Patient ended up having left scapular and rib fractures which caused punctured lung and collapse, and pneumothorax. Patient currently has a chest tube. Met with patient in his room. He was sitting up in bed, he had just recently had pain medicine. He is alert and oriented, conversive. Confirmed that he resides on his boat here in [place], he also stays in his camp. O.T. had indicated that patient also has a significant other in [place]. His son, Wagner Banerjee, resides in [place], and will be up to see patient. Asked him if he could stay with son, patient doubtful, has other individuals in his home. Asked him about short term rehab, and patient is willing to go, he has been to [facility] before, and would be facility of his choosing. Let him know that this [facility] [employer] can send referral, although a back up plan may need to be in order. Called Kamilla at [facility], and she reviewed, confirmed that she can accept. By Medicare standards, patient would be ready by Tuesday, would be third Medicare midnight. Will complete PASSR as well. P: DCP to continue to follow. Patient most likely will need detention, [facility] has accepted patient. Confirmed with August that they can accept Tuesday. Luzma Hassan RN/Forest Ranger Discharge Planning/Care Management CM Discharge Assessment Start: 01/21/22 11:35 Freq: Status: Active Protocol: Document 01/21/22 11:35 (Rec: 01/21/22 11:40 VM [id number]) Discharge Planning Assessment Assigned Associate Account Executive Luzma Hassan RN/Forest Ranger Advance Directives? Yes Advance Directives on File No History Provided By Family Member,Medical Record Prior Living Arrangements Other Comment boat Household Members none Type of transporation used prior to Drives own vehicle admit Independent with ADL's Yes Is patient alert and oriented? Yes Caregiver for Another No Barriers to Discharge Yes Comment Living on a boat alone, rib and scauplae fractures, most likely will need rehab Discharge Plan Nursing Home Facility Transportation Arrangement Facility Referrals Initiated Nursing Home Whiteboard Updated in Patient Room with Yes name and ext. # of Associate Account Executive Review Status In Process Next Review Type Continued Stay Review
--- NOTE | 2022-01-21 11:55 | OT.IPNOTE ---
Spoke to pt and attempting to initiate OT eval. Pt states just finished with PT and in too much pain and would rather wait to see OT until tomorrow as looking to possibly get the chest tube out tomorrow. To check on the pt tomorrow for OT eval.
[2022-01-21] MEDS: KETOROLAC 30 MG/ML VIAL IV ×2 (12:33→18:53)
[2022-01-22] VITALS (7 sets, daily range): BP systolic 125–174; BP diastolic 64–80; PULSE 67–89; RESP 18–20; TEMP 36.1–37; O2SAT 95–98
[2022-01-22] MEDS: KETOROLAC 30 MG/ML VIAL IV ×4 (00:06→20:40)
[2022-01-22] MEDS: ALPRAZolam 0.5 MG TABLET 0.25 MG PO ×2 (00:07→23:05)
[2022-01-22] MEDS: ENOXAPARIN 40 MG/0.4 ML SYRINGE SUBCUT (09:07)
[2022-01-22] MEDS: OXYCODONE IR 5 MG TABLET 10 MG PO ×3 (09:07→22:19)
--- NOTE | 2022-01-22 11:33 | DI.RAD.S_ITS ---
PROCEDURE: XR CHEST 1V INDICATIONS: Left pneumothorax status post chest tube removal TECHNIQUE: One view of the chest was acquired. COMPARISON: [facility], CT, CT CHEST ABD PEL W CON, 01/20/2022, 16:27. [facility], CR, XR CHEST 1V, 01/21/2022, 9:27. FINDINGS: Surgical changes and devices: Left-sided chest tube has been removed. Lungs and pleura: There is a small left apical pneumothorax. Left greater than right reticular opacities are seen. Probable trace left pleural effusion. Mediastinum: Mediastinal contours appear normal. Heart size is normal. Bones and chest wall: Multiple displaced left-sided rib fractures are redemonstrated. Comminuted left scapular fracture again seen. Overlying soft tissues appear unremarkable. IMPRESSION: Stable small left apical pneumothorax. Bilateral pulmonary articulations and trace left pleural effusion do not appear significantly changed. Multiple osseous fractures redemonstrated. Approved by: Yonas Hwang M.D. on 01/22/2022 at 12:55
--- NOTE | 2022-01-22 11:34 | P.PN_ITS ---
Subjective Subjective Date Patient Seen: 01/22/22 Time Patient Seen: 11:34 Interval history: Admitted after a fall for rib fractures and left scapular fracture. Ongoing left chest pain with inspiration and upper extremity movement. No shortness of breath. Exam Vital Signs (past 8 hours): - 01/22/22 06:00 01/22/22 06:00 01/22/22 07:40 Temperature 97.5 F L 97.4 F L Pulse Rate 76 68 Respiratory Rate 18 18 Blood Pressure 132/71 130/74 Pulse Oximetry 95 95 97 Oxygen Delivery Method Room Air Oxygen Flow Rate 0 0 0 Oxygen Delivery Method Room Air Oxygen Flow Rate 0 Narrative Exam Narrative: General elderly man alert oriented no acute distress Chest no leak in the Pleur-evac. Scant chest tube output serosanguineous. Objective Labs Result Diagrams: 01/20/22 17:28 01/20/22 17:28 [facility] Social History household members: none Smoking Status: Never smoker alcohol intake: current Assessment & Plan Assessment and plan (1) Pneumothorax: Problem details: 76-year-old man status post fall with multiple left rib fractures, left pneumothorax and a left scapular fracture. Rib fractures multimodal pain control Left pneumothorax chest tube switched to water seal this morning follow-up x-ray today Left scapular fracture sling non op VT prophylaxis Lovenox -PT OT Status: Acute Assessment & Plan narrative: 76-year-old male status post fall with left scapular fracture multiple left rib fractures with associated pneumothorax. Pneumothorax-chest tube removed this morning. Follow-up chest x-ray Rib fractures-multimodal pain control Left scapular fracture-non operative. Sling VT prophylaxis Lovenox Disposition-rehab tomorrow Time Spent With Patient Critical Care time: I spent a total of [] minutes of critical care time on this patient's care today; this time is exclusive of procedural time. Quality VTE Deep Vein Thrombosis/Pulmonary Embolism Present on Admission: No
--- NOTE | 2022-01-22 11:49 | PC.NURSE ---
Addendum entered by Rubi Angel R.N. 01/22/22 18:19: Pressure dressing applied to patients chest incision, and he took the dressing off by himself. Patient does not want to listen to staff recommendations. He has been pleasant with some care. Son here for dinner and became agitated with his dad and told him to be appropriate with staff and calm down. Patient became agitated and told his son to back off. Will check on patients incision site once more before end of shift. Addendum entered by Rubi Angel R.N. 01/22/22 17:23: Patients chest tube is out. His incision had a medium sized clot that was taken off of incision and dressing redone with vaseline gauze and tegaderm. The area keeps wheeping blood and dressing has been changed x2 now. Phoned Dr. Bishop about this again and he states to just keep changing the dressing and put a pressure dressing around it. Patient is not happy with any of the doctors, he does not want to go to the care center, and he states that he will only do what he wants with physical therapy at [facility]. His son is visiting now and patient is going to eat dinner. Given oxycodone 10mg at 1550. Will check dressing again. Original Note: Assess- Patient is alert and oriented x4, he states that he has pain to his L.clavicle area and L.rib area. Patient just had his chest tube taken out, he had about 30cc of ss drainage in tube. He tolerated this well. Patient is getting up independently to use the commode. He would like something for his bowels ordered, will look into this. Patient is anxious about not having a bowel movement. He has a sling to his left arm that is intact. Increased his oxycodone to 10mg po and given, he can have this every 3 hours. Patient enjoys conversing and has been pleasant with staff and needs.
--- NOTE | 2022-01-22 12:07 | PC.NURSE ---
Pt inquired about having something for BM. Pt educated on the effects of px medication causing constipation. Pt's states his last BM was a day before admission. Reassured pt that we will notify the provider of his concerns.
--- NOTE | 2022-01-22 13:07 | OT.IP.EVAL ---
Current Diagnoses Pneumothorax, unspecified (01/20/22) Multiple fractures of ribs, unspecified side, initial encounter for closed fracture (01/20/22) Fracture of unspecified part of scapula, unspecified shoulder, initial encounter for closed fracture (01/20/22) Occupational Therapy Inpatient Evaluation/Re-Eval M1 PT/OT-IP Prior Functional Status Start: 01/21/22 12:31 Freq: NEEDED Status: Active Protocol: Document 01/22/22 14:13 CGR (Rec: 01/22/22 14:29 CGR [id number]) Medical Review Prior Functional Status Medical History Reviewed Yes Communication able to make needs known Mobility and Gait pt stated that he is independent with all mobilities and ambulation without AD Activities of Daily Living and IADL's Pt states he is independent with all ADLs. Social History Household Members none Living Arrangements Other Comment pt lives on a boat ( has a ladder that he has to climb up to get into) but sleeps on his camper; stated that depending if son will be able to assist him, he might go to his son's house initially; also stated that he can just go to his camper for now. home set up below is regarding pt's campter Number of Floors (Floors) One Floor Number of Stairs To Enter/Railing? 2 steps to enter without rails Home Environment Standard Height Toilet Additional Social History Comment pt stated that he takes a shower at [employer] pt has a walking stick M2 OT-IP Current Condition Start: 01/22/22 14:13 Freq: Status: Active Protocol: Document 01/22/22 14:13 CGR (Rec: 01/22/22 14:29 CGR [id number]) Occupational Therapy Current Condition Current Condition Evaluation Date 01/22/22 Treatment Diagnosis fall with multiple L rib fx, L pneumothorax, L scapular fx. Diagnosis Onset Date 01/20/22 M3 OT- IP Subjective and Pain Start: 01/22/22 14:13 Freq: Status: Active Protocol: Document 01/22/22 14:13 CGR (Rec: 01/22/22 14:29 CGR [id number]) OT- Subjective Occupational Therapy Visit Type Type Initial Evaluation Visit Start Time 12:48 Visit Stop Time 13:07 Total Visit Minutes 19 Notes Chest tube discharged today OT Pain Assessment Pain When Pain Assessed At Rest Pain Present Pain Present Pain Reported Location Chest Intensity 4 Scale Used Numeric (0 - 10) Management Techniques Distraction,Modification of Treatment,Re-positioning M4 OT- IP ADL's Start: 01/22/22 14:13 Freq: Status: Active Protocol: Document 01/22/22 14:13 CGR (Rec: 01/22/22 14:29 CGR [id number]) OT HAZ-Dwoy-Mhslmah General Evaluation Self-Feeding Ability Independent Comments OT Self-Feeding Comments Pt eating lunch at end of session. OT ADL-Grooming Comments OT Grooming Comments Pt declined, states he already performed OT ADL-Oral Care Comments Oral Care Comments Pt declined, states he already performed OT ADL-Dressing General Eval Lower Body Dressing Ability Independent Areas Needing Assistance Socks Comments OT Dressing Comments seated in chair with extra time OT ADL-Toileting Comments OT Toileting Comments not performed OT ADL-Bathing Comments OT Bathing Comments not performed M5 OT- IP IADL's Start: 01/22/22 14:13 Freq: Status: Active Protocol: Document 01/22/22 14:13 CGR (Rec: 01/22/22 14:29 CGR [id number]) OT-Instrumental Activities of Daily Living Deficits IADL Deficits Identified No Deficits Home Safety Awareness Awareness of Need for Assistance at Home Good Awareness Ability to Problem Solve Emergency Able to Problem Solve Situations Medication Management Medication Management No Deficits Identified Money Management Money Management No Deficits Identified Meal Preparation Meal Preparation No Deficits Identified Nursery School Attendant Nursery School Attendant No Deficits Identified Driving Driving Comments 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 OT- IP Functional Cognition Start: 01/22/22 14:13 Freq: Status: Active Protocol: Document 01/22/22 14:13 CGR (Rec: 01/22/22 14:29 CGR [id number]) Cognitive Factors Limiting Selfcare Function Cognitive Ability Level of Alertness Alert Patient Orientation Name,Age,Birthday,Month,Date, Year,Day of Week,Place, Situation Attention Span Ability Capable of Focused Attention, Capable of Sustained Attention OT- Vision and Hearing OT- Hearing Assessment OT- Hearing Assessment WFL OT- Vision Assessment Visual Attentiveness WFL Occular Pursuits WFL Visual Convergence WFL M7 OT- IP Mobility and Balance Start: 01/22/22 14:13 Freq: Status: Active Protocol: Document 01/22/22 14:13 CGR (Rec: 01/22/22 14:29 CGR [id number]) OT- Bed Mobility Assessment Supine to Sit Supine to Sit Assist Independent Scooting Scooting to Edge of Bed Independent OT-Transfer Assessment Sit to and From Stand Sit to and from Stand Standby Assistance Transfers Transfer Ability Standby Assistance Technique Transfer Destination Bed,Chair Transfer Technique Stand Step Pivot Devices Transfer Assistive Devices None Comments Mobility Comments mobility around the room with SBA OT- Balance Assessment Sitting Balance and Reactions Static Sitting Balance Ability Normal Dynamic Sitting Balance Ability Normal M8 OT- IP Objective Assessments Start: 01/22/22 14:13 Freq: Status: Active Protocol: Document 01/22/22 14:13 CGR (Rec: 01/22/22 14:29 CGR [id number]) OT Gross Range of Motion Upper Extremity Range of Motion Assessment Left Impaired ROM Impairments L in sling OT Strength Comments Strength Comments L shld and arm not tested, R side and L hand all 5/5 OT- Coordination Assessment Upper Extremity Finger to Nose Test Within Functional Limits Finger Tapping Test Within Functional Limits OT-Muscle Tone Assessment Muscle Tone WNL Yes OT Sensation Assessment Edema Edema Absent M9 OT- IP Assessment and Plan Start: 01/22/22 14:13 Freq: Status: Active Protocol: Document 01/22/22 14:13 CGR (Rec: 01/22/22 14:29 CGR [id number]) OT Summary Assessment and Plan Potential Rehabilitation Potential Excellent Analytic Complexity at Evaluation Low Summary OT Impairments Range of Motion Progress Towards Goals Safe For Discharge Assessment Summary Pt presents as a low complexity evaluation s/p fall from boat with rib fx, L pneumothorax, L scapular fx. Pt is currently mobilizing with SBA and able to perform simple ADLs with SBA. Pt could discharge to SNF for home. Goals Dressing Goal Independent Shower Transfer Goal Independent Days to Meet Goals 1 Frequency of Treatment Frequency Of Treatment Once a Day Treatment Plan OT Treatment Plan ADL Training,Discharge Planning Other Treatment Recommendations and Next shower and dressing. Treatment Focus Discharge Recommendations OT Discharge Recommendations Home vs SNF Transportation Needs at Discharge Private Vehicle
[2022-01-22] MEDS: DOCUSATE 100 MG CAPSULE PO ×2 (14:02→20:40)
--- NOTE | 2022-01-22 14:31 | CM.DPNOTE ---
Discharge Planning Note: Spoke with Kamilla at [facility] and they are still planning to accept admission for tomorrow. Plan: If medically stable, discharge tomorrow at 1:30, [facility] picker by [facility]. Order Covid swab in AM. PASSR done. Rachel Kerr RN/DCP
--- NOTE | 2022-01-22 15:15 | PC.NURSE ---
CHIEF DIGITAL MEDIA OFFICER reported pt was bleeding at the site of chest tube removal. Assess- Blood clot formation 4cm x 2cm underneath tegaderm. Notified surgeon; instructed to remove blood clot and redress. Upon removing blood clot, 2 pieces of partial stitches were also removed. Cleaned the area with sterile gauze, redressed with tegaderm. Will continue to monitor site throughout shift.
[2022-01-23] VITALS: O2SAT 98
[2022-01-23 00:20] VITALS: BP 118/65; PULSE 68; RESP 18; TEMP 36.5; O2SAT 97
[2022-01-23] MEDS: OXYCODONE IR 5 MG TABLET 10 MG PO ×3 (05:46→13:53)
[2022-01-23] MEDS: KETOROLAC 30 MG/ML VIAL IV (05:47)
[2022-01-23 06:00] VITALS: BP 143/79; PULSE 76; RESP 20; TEMP 36.4; O2SAT 96
[2022-01-23 08:00] VITALS: O2SAT 96
[2022-01-23] MEDS: ENOXAPARIN 40 MG/0.4 ML SYRINGE SUBCUT (08:28)
[2022-01-23] MEDS: DOCUSATE 100 MG CAPSULE PO (08:28)
[2022-01-23 09:00] VITALS: BP 110/65; PULSE 75; RESP 18; TEMP 36.6; O2SAT 98
[2022-01-23 09:04] LABS: COVID19 -Nasal RAPID Negative (Negative)
--- NOTE | 2022-01-23 11:20 | CM.DPC ---
DCP Cont: Pt is medically stable for discharge. Pt to discharge to [facility] today @ 1400 via [facility] transport van. COVID swab ordered and complete. PASRR, Rx's, and signed med list faxed to . Elizabeth Hoffman RN/RENETTAP
--- NOTE | 2022-01-23 11:21 | PM.DS.1 ---
History of Present Illness History of Present Illness Date Patient Seen: 01/23/22 Time Patient Seen: 11:21 Chief complaint: Fall Narrative: 76-year-old man admitted after a traumatic fall yesterday. Working on his boat and fell approximately 5-8 feet landing on directly on his left chest wall. He did not strike his head or lose consciousness. He presented to the emergency room yesterday afternoon he was hemodynamically stable with complaint of left chest pain. He underwent CT head chest abdomen pelvis and left upper extremity which demonstrated multiple left rib fractures, left pneumothorax and a left scapular fracture. Chest tube was placed in the emergency room with the resolution of his pneumothorax. Orthopedics evaluated the patient and the scapular fracture is non operative he is placed in a sling. Today he is feeling overall improved from yesterday but continues stab significant left chest pain with inspiration. No new patient concerns since admission. Discharge Providers Provider Date of admission: 01/20/22 18:02 Discharge Date: 01/23/22 Consults: 01/20/22 18:18 Consult to Occupational Therapy Evaluate & Treat Comment: Physician Instructions: Evaluate and treat Consult to Physical Therapy Evaluate & Treat Comment: Physician Instructions: Evaluate and Treat 01/20/22 18:19 Consult to Respiratory Therapy Evaluate & Treat Comment: goal of 80% inspirority [place] or max 1500mL Physician Instructions: Baseline spriometry vol Discharge provider: Darius Bishop MD Summary Hospital Course Discharge Diagnosis: Multiple rib fractures Pneumothorax Scapular fracture Hospital Course: Patient was admitted to the hospital following a traumatic fall. He sustained multiple left rib fractures left pneumothorax and left scapular fracture. Pneumothorax was successfully treated with chest tube. Rib fractures were treated with multimodal pain control. Left scapular fracture was non operative per Orthopedics and treated with sling. His chest tube was removed his large pneumothorax is clinically resolved, there is a minimal apical residual pneumothorax on the last chest x-ray however his breathing is nonlabored saturating well on room air. At discharge he is well and ready for rehab Time Spent with Patient Time spent: Greater than 30 minutes Exam Vital Signs (past 8 hours): - 01/23/22 06:00 01/23/22 08:00 01/23/22 09:00 Temperature 97.6 F 97.8 F Pulse Rate 76 75 Respiratory Rate 20 18 Blood Pressure 143/79 H 110/65 Pulse Oximetry 96 96 98 Oxygen Delivery Method Room Air Oxygen Flow Rate 0 0 Oxygen Delivery Method Room Air Oxygen Flow Rate 0 Narrative Exam Narrative: General elderly man alert oriented to the acute distress Chest nonlabored respirations Left chest tube site clean dry with dressing Abdomen soft nontender nondistended Extremities warm well perfused Objective Labs Result Diagrams: 01/20/22 17:28 01/20/22 17:28 Labs: Laboratory Results - last 24 hr 01/23/22 08:31 SARS-CoV-2 (PCR) Negative PFSH Social History household members: none Smoking Status: Never smoker alcohol intake: current Discharge Plan Discharge Plan Patient Disposition: SNF Transfer to: [facility] Provider Discharge Comment: Non weightbearing left upper extremity, continue use of sling Follow-up with [facility] 2 weeks for left scapular fracture No heavy lifting or straining Continue to use incentive spirometer as instructed Discharge orders & Medications Prescriptions: New docusate sodium 100 mg Capsule 100 mg PO BID Qty: 30 0RF acetaminophen 325 mg Tablet 650 mg PO Q6H Qty: 30 0RF celecoxib [Celebrex] 100 mg capsule 200 mg PO BID Qty: 30 0RF alprazolam 0.5 mg Tablet 0.25 mg PO BEDTIME PRN (Reason: Anxiety) Qty: 10 0RF oxycodone 5 mg Tablet 10 mg PO Q3H PRN (Reason: Pain, Moderate (4-6)) Qty: 30 0RF Continued doxepin 6 mg tablet 6 mg PO DAILY sildenafil [Viagra] 100 mg Tablet 50 mg PO PRN PRN (Reason: Sexual Activity) coenzyme Q10 [CoQ-10] 100 mg Capsule 100 mg PO DAILY Reishi Mushroom Tea 1 cp PO DAILY Label Comments: 1 cup daily milk thistle 1,000 mg capsule 1 cap PO DAILY saw palmetto 80 mg capsule 1 cap PO DAILY vitamin B complex Tablet 1 tab PO DAILY Diet/Activity/Treatments Diet: Diet as Tolerated Skin/Wound/Dressing Care Report to your healthcare provider any signs of infection, such as:: chills, fever, increased pain, unusual drainage and unusual redness Visit Report/Discharge Packet Instructions: DI for Chest Tube Insertion Quality VTE Deep Vein Thrombosis/Pulmonary Embolism Present on Admission: No
[2022-01-23 12:00] VITALS: O2SAT 96
--- NOTE | 2022-01-23 14:05 | PC.NURSE ---
day shift Pt left via SNF transport, all paperwork in packet, VS WNL, Pt denies pain, nausea. Pt had all personal belongings. Pt left floor at 1405.
--- NOTE | 2022-01-23 14:49 | OT.IPNOTE ---
Attempted to see for shower x2. Initially pt requesting pain medications. Requested nursing provide pain meds and this chief writer returned ~ 1 hour later but pt states he is not yet ready to shower. Will continue to follow as schedule permits.
== END 2022-01-23 14:56 | DRG 200 ==
LOC: ED 15:40 → AC 18:04
PROVIDERS: Admitting Provider Surgery; Emergency Provider Emergency Medicine; Referring Provider Emergency Medicine; Visit Provider Surgery
DX: J93.9 Pneumothorax, unspecified (principal); S22.42XA Multiple fractures of ribs, left side, initial encounter for closed fracture; S42.112A Displaced fracture of body of scapula, left shoulder, initial encounter for closed fracture; W17.89XA Other fall from one level to another, initial encounter; Y92.814 Boat as the place of occurrence of the external cause; Z20.822 Contact with and (suspected) exposure to COVID-19
CPT/HCPCS: 32551; 36415; 70450; 71045; 71260; 72125; 73030; 73200; 74177; 80053; 82550; 82553; 84484; 85025; 85610; 85730; 87635; 93005; 94760; 96372; 96374; 96375; 96376; 97161; 97165; 97535; 99152; 99221; 99231; 99238; 99285; 99291; C9803; J1170; J1650; J1885; J2270; J2704; J3010; Q9967

== ENCOUNTER → 2022-06-09 13:23 | Outpatient (CLI) | payer MEDICARE, OTHER, SELFPAY ==
[2022-01-20 21:19] VITALS: BMI 21.0
--- NOTE | 2022-06-09 12:45 | DI.ECHO.S_ITS ---
Interpretation Summary Sinus rhythm. Normal LV size and wall thickness. Normal wall motion and LV systolic function. Ejection fraction of 60-65%. Stage 1 diastolic dysfunction. Mild left atrial enlargement, otherwise normal chamber sizes. No significant valvular abnormalities. No prior study available for comparison. Procedure: A two-dimensional transthoracic echocardiogram with color flow and Doppler was performed. The study quality was technically adequate. There is no prior echocardiogram noted for this patient. The patient was in sinus rhythm with heart rates between 66-76 bpm during the exam. Left Ventricle: The left ventricle is normal in size and wall thickness. The ejection fraction is estimated to be 60-65%. Right Ventricle: The right ventricle is normal in size and function. Atria: The left atrium is mildly dilated. Right atrial size is normal. There is no Doppler evidence for an interatrial shunt. Mitral Valve: The mitral valve is normal in structure and function. There is mild mitral regurgitation. Aortic Valve: The aortic valve is trileaflet. The aortic valve is slightly calcified. There is no aortic valve stenosis. No aortic regurgitation is present. Tricuspid Valve: The tricuspid valve is normal in structure and function. There is trace tricuspid regurgitation. Pulmonic Valve: The pulmonic valve leaflets are thin and pliable; valve motion is normal. There is trace pulmonic regurgitation. Great Vessels: The aortic root is normal size. The dimensions of the ascending aorta are normal. The IVC is of normal diameter and collapses greater than 50% with a sniff. This suggests a low right atrial pressure of 3 mm Hg. Pericardium/ Pleura There is no pericardial effusion. There is no pleural effusion. MMode/2D Measurements & Calculations LVIDd: 4.6 cm LVOT diam: 2.2 cm LVIDs: 3.0 cm Ao root diam: 3.9 cm FS: 35.3 % asc Aorta Diam: 3.7 cm IVSd: 0.95 cm Ao Arch Diam (Prox Trans): 2.3 cm LVPWd: 1.1 cm LV urena. diameter/BSA (cm/m^2): 2.4 LV sys. diameter/BSA (cm/m^2): 1.6 LA A2 area: 21.0 cm2 RA long axis: 5.6 cm LA A4 area: 21.5 cm2 RA area: 17.5 cm2 LA length (vol): 5.5 cm RA vol: 46.2 ml LA vol: 69.7 ml RA : 24.5 ml/m2 LA vol index: 37.0 ml/m2 IVC diam: 1.0 cm RVD1 (basal): 2.9 cm RVD2 (mid): 2.4 cm TAPSE: 1.6 cm Doppler Measurements & Calculations Ao V2 max: 106.5 cm/sec LVOT Max Mike: 89.0 cm/sec Ao V2 mean: 77.5 cm/sec LV V1 max P.2 mmHg Ao max P.5 mmHg LV V1 VTI: 19.4 cm Ao mean P.6 mmHg GEREMIAS(I,D): 3.2 cm2 Ao V2 VTI: 22.4 cm GEREMIAS(V,D): 3.1 cm2 sev ratio: 0.86 GEREMIAS indexed to BSA (cm^2/m^2): 1.7 MV E max mike: 53.3 cm/sec PA V2 max: 71.7 cm/sec MV A max mike: 70.4 cm/sec PA V2 mean: 53.4 cm/sec MV E/A: 0.76 PA mean P.2 mmHg Med Peak E' Mike: 6.8 cm/sec PA pr(Accel): 29.3 mmHg E/E' med: 7.8 Lat Peak E' Mike: 8.6 cm/sec E/E' lat: 6.2 E/e' average: 7.0 MV dec time: 0.22 sec SV(LVOT): 71.9 ml Electronically signed by: Dulce Borges M.D. on Reading Physician:06/09/2022 04:38 PM
== END ==
PROVIDERS: PCP Family Medicine; Referring Provider Family Medicine; Visit Provider Family Medicine
DX: I34.0 Nonrheumatic mitral (valve) insufficiency (principal); R06.02 Shortness of breath
CPT/HCPCS: 93306

== ENCOUNTER 2022-06-17 12:30 | Outpatient (RCR) | payer MEDICARE, OTHER, SELFPAY ==
[2022-01-20 21:19] VITALS: BMI 21.0
== END 2022-06-17 14:30 ==
LOC: PUL 12:30
PROVIDERS: PCP Family Medicine; Referring Provider Family Medicine; Visit Provider Family Medicine
DX: R06.02 Shortness of breath (principal); Z87.09 Personal history of other diseases of the respiratory system
CPT/HCPCS: G0237; G0238

== ENCOUNTER → 2023-07-21 14:13 | Outpatient (CLI) | payer MEDICARE, OTHER, SELFPAY ==
[2022-01-20 21:19] VITALS: BMI 21.0
--- NOTE | 2023-07-21 14:17 | DI.US.S_ITS ---
PROCEDURE: US SCROTUM INDICATIONS: Benign cyst of testis TECHNIQUE: Real-time scanning was performed of the scrotum and testicles, with image documentation. Color and pulse Doppler interrogation was performed of both testicles. COMPARISON: None. FINDINGS: Right: Testicle is normal in size at 4.1 x 2.2 x 3.6 cm, and homogenous in echotexture. Epididymis is normal in overall size and morphology. There is a 3.4 x 2.0 x 3.3 cm epididymal head cyst. No hydrocele or varicoceles. Overlying scrotal skin is normal in thickness. Left: Testicle is normal in size at 4.7 x 2.0 x 3.0 cm, and homogeneous in echotexture. A small cyst is present within the superior pole which measures 2 mm in diameter. Epididymis is normal in overall size and morphology. There is a small left hydrocele and a left varicocele. Overlying scrotal skin is normal in thickness. Doppler: Color and pulse Doppler demonstrate normal and symmetric arterial flow in both testicles. IMPRESSION: 1. Large right epididymal head cyst. 2. Small left hydrocele. 3. Left varicocele. Dictated by: Lanie Hall M.D. on 07/21/2023 at 17:07 Approved by: Lanie Hall M.D. on 07/21/2023 at 17:09
== END ==
PROVIDERS: PCP Family Medicine; Referring Provider Family Medicine; Visit Provider Family Medicine
DX: N44.2 Benign cyst of testis (principal); N50.3 Cyst of epididymis; N43.3 Hydrocele, unspecified; I86.1 Scrotal varices
CPT/HCPCS: 76870; 93975

== ENCOUNTER → 2023-08-27 11:32 | Outpatient (CLI) | payer MEDICARE, OTHER, SELFPAY ==
[2022-01-20 21:19] VITALS: BMI 21.0
--- NOTE | 2023-08-27 11:34 | DI.CT.S_ITS ---
PROCEDURE: CT CHEST HIGH RESOLUTION INDICATIONS: INTERSTITIAL LUNG DISEASE TECHNIQUE: Noncontrast 1.0 and 5.0 mm thick contiguous axial sections from the pulmonary apex to the posterior costophrenic angles, with 7 mm thick coronal and sagittal MIP reformats. 1 mm thick dynamic expiratory images acquired through the upper, mid, and lower lungs. 1.0 mm thick axial sections acquired from the arnaldo to the posterior costophrenic angles in the prone end-inspiration position. For radiation dose reduction, the following was used: automated exposure control, adjustment of mA and/or kV according to patient size. COMPARISON: [facility], CT, CT CHEST ABD PEL W CON, 01/20/2022, 16:27. FINDINGS: Image quality: Diagnostic. Lower Neck: No enlarged lymph nodes. Thyroid: No thyroid nodules which require sonographic follow up, per consensus guidelines. Axillae: No enlarged lymph nodes. Chest Wall: Unremarkable. Bones: Mild chronic posttraumatic deformity of the left scapula. Old healed left-sided rib fractures. Lungs and Pleura: No pneumothorax or pleural effusions. Bilateral peripheral and basilar predominant reticulations and traction bronchiectasis are seen with areas of honeycombing most notably at the lingula. Findings have likely mildly progressed when compared to the CT from 01/20/2022, although findings are much better evaluated on the current exam. No suspicious pulmonary nodule or mass. Heart: Heart size is normal. No pericardial effusion. Moderate coronary artery calcifications. Thoracic Vessels: The aorta and pulmonary arteries demonstrate normal size. Mediastinum and [place]: No enlarged lymph nodes. Esophagus: No wall thickening. No hiatal hernia. Upper Abdomen: Visualized upper abdomen solid organs and bowel loops appear normal. 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 Findings have mildly progressed when compared to the CT from 01/20/2022. Approved by: Yonas Hwang M.D. on 08/28/2023 at 11:49
== END ==
PROVIDERS: PCP Family Medicine; Referring Provider Internal Medicine Critical Care Medicine; Visit Provider Internal Medicine Critical Care Medicine
DX: J84.9 Interstitial pulmonary disease, unspecified (principal); I25.10 Atherosclerotic heart disease of native coronary artery without angina pectoris
CPT/HCPCS: 71250

== ENCOUNTER → 2023-08-29 09:43 | Outpatient (CLI) | payer MEDICARE, OTHER, SELFPAY ==
[2022-01-20 21:19] VITALS: BMI 21.0
== END ==
PROVIDERS: PCP Family Medicine; Referring Provider Internal Medicine Critical Care Medicine; Visit Provider Internal Medicine Critical Care Medicine
DX: R06.02 Shortness of breath (principal); J84.9 Interstitial pulmonary disease, unspecified
CPT/HCPCS: 94060; 94726; 94729

== ENCOUNTER → 2023-08-31 13:24 | Outpatient (CLI) | payer MEDICARE, OTHER, SELFPAY ==
[2022-01-20 21:19] VITALS: BMI 21.0
[2023-08-31 14:21] LABS: Alanine Aminotransferase 16 IU/L (<50); Albumin 4.4 g/dL (3.5-5.0); Albumin Globulin Ratio 1.1 (1.0-2.8); Alkaline Phosphatase 57 U/L (38-126); Aspartate Aminotransferase 33 IU/L (17-59); Bilirubin Total 0.7 mg/dL (0.2-1.3); Blood Urea Nitrogen 24 mg/dL (9-20); Carbon Dioxide 24 mmol/L (22-32); Chloride 110 mmol/L (98-107); Estimated Glomerular Filt Rate 58 mL/min (>60); Globulin 3.9 g/dL (1.7-4.1); Glucose 111 mg/dL (80-110); HEMOLYSIS < 15 (0-50); Potassium 4.3 mmol/L (3.4-5.1); Sodium 138 mmol/L (137-145); Total Protein 8.3 g/dL (6.3-8.2)
== END ==
PROVIDERS: PCP Family Medicine; Referring Provider Internal Medicine Critical Care Medicine; Visit Provider Internal Medicine Critical Care Medicine
DX: J84.112 Idiopathic pulmonary fibrosis (principal)
CPT/HCPCS: 80053; 86038

== ENCOUNTER → 2024-07-24 15:36 | Outpatient (CLI) | payer MEDICARE, OTHER, SELFPAY ==
[2022-01-20 21:19] VITALS: BMI 21.0
[2024-07-24 16:31] LABS: Alanine Aminotransferase 18 IU/L (<50); Albumin 4.4 g/dL (3.5-5.0); Albumin Globulin Ratio 1.3 (1.0-2.8); Alkaline Phosphatase 51 U/L (38-126); Aspartate Aminotransferase 34 IU/L (17-59); Bilirubin Total 0.5 mg/dL (0.2-1.3); Bilirubin Unconjugated 0.2 mg/dL (0.0-1.1); Globulin 3.5 g/dL (1.7-4.1); HEMOLYSIS < 15 (0-50); Total Protein 7.9 g/dL (6.3-8.2)
== END ==
PROVIDERS: PCP Family Medicine; Referring Provider Internal Medicine Critical Care Medicine; Visit Provider Internal Medicine Critical Care Medicine
DX: J84.112 Idiopathic pulmonary fibrosis (principal)
CPT/HCPCS: 36415; 80076; 99214

== ENCOUNTER → 2024-12-24 09:18 | Outpatient (CLI) | payer MEDICARE, OTHER, SELFPAY ==
[2022-01-20 21:19] VITALS: BMI 21.0
== END ==
LOC: RESP 09:20
PROVIDERS: PCP Family Medicine; Referring Provider Internal Medicine Critical Care Medicine; Visit Provider Internal Medicine Critical Care Medicine
DX: J84.112 Idiopathic pulmonary fibrosis (principal); R94.2 Abnormal results of pulmonary function studies
CPT/HCPCS: 94060; 94726; 94729